=== PATIENT | male | born 2000 | race Caucasian/White ===

== ENCOUNTER 2024-07-11 18:43 | Emergency (ER) | payer OTHER, SELFPAY ==
[2024-07-11] VITALS (8 sets, daily range): BP systolic 127–164; BP diastolic 78–105; PULSE 79–87; RESP 13–21; TEMP 37.3; O2SAT 94–100; BMI 19.6
--- OUTSIDE RECORDS SUMMARY | 2024-07-11 18:45 | XMS_ITS | Data Portability ---
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 I reviewed the pathophysiology of the disorder, potential contributing and risk factors as well as treatment options to address their complaints. I discussed the pros and cons of advanced imaging. I did not recommend advanced imaging with CT. Today no imaging was obtained. Ronaldo presents with symptoms consistent with masticatory myofascial pain and bilateral TMJ arthralgia. We discussed that a main contributing factor is limited jaw function and a jaw thrusting component. From a treatment perspective I recommended a rehabilitative treatment approach. Treatment begins with home self management designed to rest the muscles of mastication and reduce inflammation in the temporomandibular joints. This includes heat and ice compresses, eating a soft food or pain-free diet, bilateral chewing identifying and decreasing daytime muscle tension and modification of their sleep position. Today I taught simple jaw exercises designed to improve the jaw mechanics and movement, improve range of mouth opening and improve TM joint fluid circulation to facilitate healing. This includes jaw rotation, simple stretch and relaxed breathing. This was both demonstrated and given in written format. Beyond self management I believe that they would benefit from a mandibular intraoral appliance. This will be considered after rehabilitation with physical therapy. In addition I've recommended rehabilitation with physical therapy. We discussed the option of doing PT in our clinic or referring outside. He will consider options and let us know which location would be more convenient for him. The goal of treatment is to improve pain, function and focus on long-term self-management strategies. I believe that by following these treatment recommendations there is a good prognosis for reduction of symptoms. History was obtained from the patient. The patient has 3 diagnoses they would like to address. This case is moderate complexity because of multiple diagnoses with chronic symptoms. Data reviewed included: outside records. Discussion with pain team members after visit was necessary. Risk of complications include progressive disease/symptoms. Today time spent may have included a review of past records, history taking, review of diagnoses, contributing factors, treatment plan, diagnostic testing, prognosis, expectations, risks and complications of treatment/no treatment, discussions with other providers and completing documentation was 60 minutes. Cost of care and insurance coverage was reviewed and discussed with the patient. Not available 11/11/2023 19:47:48 02/05/2024 02/05/2024 Patient presents to therapy with signs and symptoms consistent with the ICD 10 diagnoses noted below. 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 Condition is evolving with moderate irritability and personal factors/comorbidit ies affecting the plan of care (see history section for list of factors). These findings limit the pt from participation in the following functional activities: chewing anything other than pureed food, opening wide to yawn and speaking. Treatment plan to include reducing myalgia, increasing joint ROM, teaching self management strategies and strengthening to provide long-term symptom reduction. The patient was educated on the risks/benefits of physical therapy and the anatomy pertaining to their present condition. The physical therapy POC and goals were discussed with the patient and all present questions/concerns were addressed. Pt agrees to treatment plan. Rehabilitation potential is good. Treatment to include: therapeutic exercise, manual therapy, neuro muscular re education, therapeutic activities, self care, possible dry needling and modalities as needed. Frequency: will be 2>3/month for 6-8 weeks, tapering as able for a total of 6 visits over 3 months. [email or web address] Not available 02/05/2024 14:33:10 02/10/2024 02/10/2024 Coached Max to apply a little less stretching force on the R. Discussed questions about arthralgia vs muscle vs joint. Pt feels there is an issue with both the joint and the muscle but points out on his MRI that the R TMJ looked fine, although that is the side that clicks noticeably and bothers him more. We discussed the MRI is taken in a couple positions of the jaw and doesn't always perfectly capture what is going on - unfortunately. But, we will treat what we are finding and that is both some joint issues with the pain and clicking and the muscular pain/tension. [email or web address] Not available 02/10/2024 15:55:55 Plan of Treatment Reminders Order Date Submit Date Provider Last Modified By Organization Details Last Modified Time Details Appointments None recorded. Lab None recorded. Referral physical therapist referral 2023 024 [email or web address] Not available 19:53:45 Procedures None recorded. Surgeries None recorded. Imaging None recorded. Medication Orders None recorded. Patient Targets Encounter Date Encounter Id Patient Goals Patient Target Last Modified By Organization Details Last Modified Time [facility] goals (to be met in 12 weeks):*Patient will report improved score on JFWL by at least 10%, indicating clinically significant improvement in self-reported level of function to allow patient to safely achieve pre-onset level of function.*Patien t will demonstrate the ability to open jaw to 40mm IO without compensations, noticeable difficulty or pain greater than 2/10 to be allow for adequate jaw function for chewing food of all types and consistencies without compensation or difficulty. [email or web address] Not available 02/05/2024 14:33:13 Patient Instructions Encounter Date Encounter Id Patient Instructions Last Modified By Organization Details Last Modified Time 11/11/2023 [id number] Self Care for TMD Not avai lable 11/11/2023 19:53:45 Three Jaw Exercises Not available 11/11/2023 19:53:45 02/05/2024 [id number] Total treatment time minutes today = 55 Next Visit Plan: (mix of virtual and in-person) Review joint mob, start CR without neck extension. Tubing/gum rolling for AROM. INNJOY [employer] Code: [id number] Patient/Therapist Goals: stop pain and be able to chew again. Mushrooms - favorite. Progress Note Date: 05/04 [email or web address] Not available 02/05/2024 14:31:33 02/10/2024 [id number] Total treatment time minutes today = 35 Next Visit Plan: (mix of virtual and in-person future apts) Review joint mob and CR without neck extension. Tubing/gum rolling for AROM. [employer] Code: [id number] Patient/Therapist Goals: stop pain and be able to chew again. Mushrooms - favorite. Progress Note Date: 05/04 [email or web address] Not available 02/10/2024 15:59:10 Reason for Referral Physical Therapist Referral for Myofascial pain Referring Physician: [facility], Encounter Date: 11/11/2023 Problems Name Problem SNOMED Code Status Onset Date Resolution Date Notes Provider Name and Address Organization Details Recorded Time Bilateral temporoma ndibular joint pain 669706906536 04178 Active 2023 Bilateral TMJ arthralgi a DANIELA Aquino DDS,MS [address], [place], [address], [facility] 4 19:19:35 Myofascia l pain 823314497 Active 2023 masticato ry DANIELA Aquino DDS,MS [address], [place], [address], [facility] 4 19:24:48 Temporoma ndibular subluxati on 54910609 Active 2023 DANIELA Aquino DDS,MS [address], [place], [address], [facility] 4 19:34:16 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 Procedures Surgical History Date Name Laterality Status Provider Name and Address Organization Details Recorded Time 02/10/20 93654: Self Care/Home Management Training completed Micheline Cisneros DPT [address] [facility] [address], [place], [address], [facility] 02/10/2024 15:57:48 02/10/20 20585: Therapeutic Exercise completed Micheline Cisneros DPT [email or web address], [place], [address], [facility] 02/10/2024 15:57:45 02/10/20 41645: Neuromuscular Re-Education completed Micheline Cisneros DPT [address] [facility] [address], [place], [address], [facility] 02/10/2024 15:57:43 02/05/20 18439 - PT Eval High Complexity completed Micheline Cisneros DPT [address] [facility] [address], [place], [address], [facility] 02/04/2024 20:28:30 02/05/20 47589: Self Care/Home Management Training completed Micheline Cisneros DPT [address], [place], [address], [facility] 02/05/2024 14:25:52 02/05/20 07601: Therapeutic Exercise completed Micheline Cisneros DPT [email or web address], [place], [address], [facility] 02/05/2024 14:25:34 02/05/20 14233: Manual Therapy completed Micheline Cisneros DPT [address] [facility] [address], [place], [address], [facility] 02/05/2024 14:25:50 Other completed Rachel Contreras [facility] 11/11/2023 15:08:04 Taiban Teeth Extraction completed Rachel Contreras [facility] 11/11/2023 15:08:05 procedure on lung completed Rachel Contreras [facility] 11/11/2023 15:17:25 Imaging Results None recorded. Procedure Notes None recorded. Medical Equipment None Reported. Allergies No known drug allergies Medications Name Sig Start Date Stop Date Status Note LastModified by Organization Details LastModified Time methocarbamol 500 mg tablet active Not Available Not Availabl e Not Available Flonase active Not Available Not Avail able Not Available multivitamin with iron active Not Available Not Available No t Available Vitals Date Recorded Body height Body mass index (BMI) Body weight Heart rate Systolic blood pressure Diastolic blood pressure Provider Name and Address Organization Details Last Updated DateTime 4 185.42 cm 19.1 kg/m2 67923.8 9 g 61 /min 112 mm[Hg] 83 mm[Hg] Rachel Contreras [facility] 15:08:42 Social History Question Answer Notes LastModified by Organizat ion Details LastModified Time Tobacco Smoking Status Never Smoker [facility] 11/11/2023 15:08:00 What Is Your Level Of Alcohol Consumption? Occasional [email or web address] Information not available 11/11/2023 What Is Your Level Of Caffeine Consumption? Occasional Information not available 11/11/2023 Are You Currently Employed? No [email or web address] Information not available 11/11/2023 What Type Of Diet Are You Following? SPECIFIC Currently Eating A Pureed Diet Since Nov [email or web address] Information not available 11/11/2023 Do You Reside In Or Have You Traveled To An Area Where Ebola Virus Transmission Is Active? No [email or web address] Information not available 11/11/2023 What Is The Highest Grade Or Level Of School You Have Completed Or The Highest Degree You Have Received? 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 (0=no Pain, 10=pain As Bad As You Can Imagine) 2 [email or web address] Information not available 11/11/2023 What Number Best Describes How, During The Past Week, Pain Has Interfered With Your Enjoyment Of Life? (0=does Not Interfere, 10= Completely Interferes) 3 [email or web address] Information not available 11/11/2023 What Number Best Describes How, During The Past Week, Pain Has Interfered With Your General Activity? (0=does Not Interfere, 10=completely Interferes) 4 [email or web address] Information not available 11/11/2023 How Did Primary Problem Begin? Started Having Jaw Pain spring, Cause Unknown Information not available 11/11/2023 How Many Children Do You Have? 0 Information not available 11/11/2023 What Is Your Relationship Status? Single [email or web address] Information not available 11/11/2023 Do You Feel Stressed (tense, Restless, Nervous, Or Anxious, Or Unable To Sleep At Night)? [id number] [email or web address] Information not available 11/11/2023 Do You Use Any Illicit Or Recreational Drugs? No [email or web address] Information not available 11/11/2023 How Many Years Have You Smoked Tobacco? 0 [email or web address] Information not available 11/11/2023 Sex: Unknown Functional Status Question Answer Note LastModified by Organizat ion Details LastModified Time What is your exercise level? Occasional [email or web address] Information not available 11/11/2023 Mental Status None recorded. Family History Relationship Description Onset Age of this Age Resolved Age Notes LastModified by Organization Details LastModified Time Paternal Uncle Arthritis [email or web address] Not available 11/10 15:07:22 Paternal Grandmother Arthritis [email or web address] Not available 0 11/11/2023 15:07:22 Paternal Grandmother Diabetes mellitus [email or web address] Not available 11/10 15:07:22 Mother Depressive disorder [email or web address] Not available 11/10 15:07:22 Mother Arthritis Not availa ble 11/11/2023 15:07:22 Maternal Aunt Depressive disorder [email or web address] Not available 11/10 15:07:22 Maternal Aunt Rheumatoid arthritis [email or web address] Not available 11/10 15:07:22 Maternal Aunt Diabetes mellitus [email or web address] Not available 11/10 15:07:22 Unspecified Relation Depressive disorder [email or web address] Not available 11/10 15:07:22 Unspecified Relation Migraine [email or web address] Not available 11/10 15:07:22 Unspecified Relation Rheumatoid arthritis [email or web address] Not available 11/10 15:07:22 Unspecified Relation Diabetes mellitus [email or web address] Not available 11/10 15:07:22 Maternal Grandmother Depressive disorder [email or web address] Not available 11/10 15:07:22 Maternal Grandmother Diabetes mellitus [email or web address] Not available 11/10 15:07:22 Sister Depressive disorder Not available 11/10 15:07:22 Maternal Grandfather Hypertensive disorder [email or web address] Not available 11/10 15:07:22 Medical History Condition Response Coronary Artery Disease N Other Y Gout N Chronic fatigue syndrome N Hyperthyroidism N Premenstrual syndrome (PMS) N MRSA N Emphysema N Head Trauma/Injury N Irritable bowel syndrome N Depression Y COPD N Glaucoma N Lung Disease N Hypothyroidism N Pneumonia N Pacemaker N Orthopedic Problems N Obstructive Sleep Apnea N Anxiety Disorder Y Muscle, Joint, or Bone Problems Y Autoimmune disease N Vision or Eye Problems Y Arthritis N Serious Illness or Injuries N Acid Reflux (GERD) N Cancer N Stroke N Neck Injury N Eating disorder N Back Injury N High Cholesterol N Neurologic Disorder N History of chemotherapy N Liver Disease N Organ Transplant N Rheumatoid Arthritis N Fibromyalgia N Headaches N Kidney Disease N Allergies/Hayfever N Post traumatic stress disorder (PTSD) N Parkinson's Disease N Migraines N Thyroid Problems N Brain Tumors N Anemia N Multiple Sclerosis N Immune System Disorder N Meningitis N Pancreatic disease N Heart Attack (NM) N Stomach Ulcers N Diabetes N Back pain N Bleeding Disorder N Seizures/Epilepsy N Sjogren's syndrome N Mental Health Concerns N Tuberculosis N AIDS/HIV N Hyperlipidemia N History of radiation therapy N Dementia N Asthma N Physical or sexual abuse N Substance Abuse N Psoriasis N Peripheral Vascular Disease N Reflux/GERD N Vertigo N Sleep Disorder N GERD/Reflux N Hepatitis N Aneurysm N Neuropathy N Heart Disease N Pulmonary Embolism N Hypertension N Osteoporosis N Immunizations Vaccine Type Date Status Note Provider Nam e and Address Organization Details Recorded Time SARS-COV-2 (COVID-19) vaccine, UNSPECIFIED 4 completed SIMI Gan [facility] 11/11/2023 15:08:08 pneumococcal, unspecified formulation 4 completed SIMI Gan [facility] 11/11/2023 15:08:08 Influenza, split virus, trivalent, preservative 3 completed SIMI Gan [facility] 11/11/2023 15:08:08 Past Encounters Encounter ID Performer Location Encounter Start Date Encounter Closed Date Diagnosis/Indication Diagnosis SNOMED-CT Code Diagnosis ICD10 Code Diagnosis Note [id number] DANIELA CHILEL DDS,MS [facility] [address] [place] [address] 11/11/2023 14:49:22 11/11/2023 16:47:40 Myofascial pain 233817571 M79.11 claim taker y Bilateral temporomandibular joint pain 9662264079 7599156 M26.623 Bilateral TMJ arthralgia Temporoman dibular subluxation 76136300 S03.03XA [id number] Micheline Cisneros, CIROT [facility] [address] [place] [address] 02/05/2024 12:44:41 02/05/2024 14:12:30 Bilateral temporomandibular joint articular disc disorder 4086643085 1199661 M26.633 Bilateral temporomandibular joint pain 5074131111 3751002 M26.623 Myofascial pain 32698245 9 M79.11 Temporoman dibular subluxation 09133598 S03.03XA [id number] ELISEO San [address] [place] [address] 02/10/2024 14:28:03 02/10/2024 14:57:33 Bilateral temporomandibular joint articular disc disorder 7851979860 3950182 M26.633 Bilateral temporomandibular joint pain 9361204826 5940715 M26.623 Myofascial pain 65209101 9 M79.11 Temporoman dibular subluxation 61272267 S03.03XA Health Concerns Section Related Observation LastModified by Organization Detai ls LastModified Time None Recorded Concern Status LastModified by Organization Details LastModified Time None Recorded Advance Directives Directive None Recorded Payers Encounter Date Sequence Insurance Name Policy Number Policy Nicolas Covered Member ID Nicolas Member ID Guarantor Name 11/11/2023 1 QUARTZ [id number] Jeanne Carry [id number] Avila Vann 02/05/2024 1 QUARTZ [id number] Jeanne Carry [id number] Avila Vann 02/10/2024 1 QUARTZ [id number] Jeanne Carry [id number] Avila Vann Notes Date Note Type Note Provider Name and Address Organization Details Recorded Time 11/11/2023 text/html general HPI for jaw, face, TMD painReported bypatient.Onset:starte d 2 year(s) ago Location:bilateral Quality:aching; sore; pressure; throbbing Severity:pain level 5/10 Durationconstant Symptom triggers:chews hard/crunchy/chewy foods Aggravating Factors:chewing Prior Tests:MRI Prior Treatment:arthrocentes is Symptoms statusworse Patient presents today for evaluation of a possible temporomandibular disorder. These symptoms are {{acute chronic*}} and began with {{ no clear triggering events significant stress and tension eating a pizza#}}. Previous consultation include {{ none evaluation with his/her primary care provider evaluation with his/her dentist* evaluation with both his/her dentist and primary care provider}}. Symptoms are {{right sided only left sided only bilateral*}} and aggravated by {{ no clear triggers jaw use and function* clenching and grinding of their teeth stress and tension}}. The patient is {{aware* not aware}} of teeth clenching and grinding.Ronaldo presents with his mother, Jeanne, and he was referred by Dr. Hair for his main concern of jaw pain. Briefly, he reported that symptoms started on Spring 2021 while eating a pizza. He recalls having some jaw pain 2-3 days prior to that (R>L). While eating the pizza he had a brief episode of TMJ closed-lock. He had R TMJ arthrocentesis without benefit (Dr. Cobb). Pain subsided after a couple weeks by changing to soft diet. He has noticed R > L TMJ clicking since the locking episode. Jaw pain (R>L) returned less than a year later and gradually got worse. He has been on a restricted purred diet since. He notes ache pain, as intensity as 5/10 that can linger and build up with some throbbing sensation with increased jaw function. Symptoms are worse at the end of the day. Some soreness upon awakening. He is not aware of daytime clenching. No locking episodes since initial event. He has also seen Dr. Hair who recommended non-surgical management. He recently had genetic testing and that was negative for Marfan syndrome. He is a senior [facility], [place], [place]. DANIELA CHILEL DDS,MS [address] [facility] [address], [place], [address], [facility] 11/11/2023 19:53:47 02/05/2024 text/html Patient presents today for PT evaluation regarding: Chronic jaw pain and clickingSymptoms present for: since spring 2021 while eating pizza - had an initial episode of closed lockAggravated by: chewing, with B masseter region pain, builds as he chews. Mother is present during the session with pt permission.Improved by: has eaten pureed food for a yearCurrent symptoms are reported at 2-5/10. 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 Denies: numbness, tingling, vision changes, swallowing difficulty. Previous Treatment: surgical consult at [place] - not recommended Patient Goals include: stop pain to be able to chew again. Patient Reported Outcome JFLS-8 (out of 80): 02/04=25 Micheline Cisneros DPT [address] [facility] [address], [place], [address], [facility] 02/05/2024 14:33:56 02/10/2024 text/html Pt reports incre ased soreness in R TMJ area after the stretch. Wondering about amount of force with stretching. Typing notes during the session to keep track of things. Admits to having multiple theories, explanations and treatment plans by several providers. Had arthrocentesis before MRI, a second surgery was suggested but patient/family asked about an MRI before deciding on that which is why imaging was taken. As part of today's telehealth visit Verbal Consent to treat was obtained from the patient. The patient has been informed of what a Telehealth visit is: Telehealth is the practice of using telecommunication technology to evaluate, diagnose and care for patients at a distance. This telehealth visit is medically necessary due to patient choice, distance or to prevent the community spread of Covid-19. 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 The patient has been informed that there is a potential for data loss due to technical failure. Security Measures: Multiple layers of technical and administrative security controls have been implemented to safeguard patient information. Unique, password protected visit IDs will be provided for each session. Communications are established using 256-bit TLS encryption and all shared content is encrypted with AES-256 encryption. Micheline Cisneros DPT [address] [facility] [address], [place], [place], [id number], [facility] 02/10/2024 16:00:59
--- OUTSIDE RECORDS SUMMARY | 2024-07-11 18:46 | XMS_ITS | Encounter Summary ---
Author Organization [facility] [employer] [facility] Address [address] [place] [address] Care Team Providers Care Agricultural Production Engineer Name Role Phone Keagan Bryant Morena AMANDA Primary Care Provider [phone] Encounter Details Date Type Department Care Team (Late st Contact Info) Description 08/12/2023 Telephone [place] - Pediatric Specialty [address] [place] [address] Jocelyne Escalona, [place] [address] [place] [address] Social History Tobacco Use Types Packs/Day Years Used Date Smoking Tobacco: Never Smokeless Tobacco: Never Comments:smoke free Alcohol Use Standard Drinks/Week Comments Never 0 (1 standard drink = 0.6 oz pur e alcohol) Depression ([facility]) Answer Date Recorded PHQ2 Not on file 04/24/2023 PHQ4 Not on file 04/24/2023 PHQ-9 TOTAL SCORE 9 04/24/2023 Suicide Risk Alert Not on file 04/24/2023 Sex and Gender Information Value Date Recorded Sex Assigned at Not on file 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 Gender Identity Not on file Sexual Orientation Not on file Occupation Industry Job Start Date Job 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 Date 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 Submitted PA via [email or web address], REF# [id number] - pending * Telephone Encounter - Jocelyne Escalona, [place] - 08/12/2023 12:35 PM CDT GENETICS -- NGHIA BEEBE August 12, 2023 Who is billing: ([facility] or Lab) [facility] Lab Info (Address, Phone #) Prevention [facility] [facility] [address] Test Name: Marfan Syndrome and Related Aortopathies Test Code: 69559 Cpt Codes: 32351, 05428, 35428, 12178, 39495 Diagnosis Codes: Q67.7, H52.1, M35.7, F84.0 Referring Provider: Dr. Villarreal Purpose of testing: diagnostic, needed for medical management Has sample been obtained (if yes, date)? No Has medical mgt/clinical utility been addressed in genetics note? Yes If no, please state which provider you would like us to query to obtain medical mgt? What additional documents would you like sent with the PA request other than referring provider's note? none Assessment 1. Autism spectrum disorder (*) 2. Shoulder joint hypermobility 3. Pectus carinatum 4. Myopia with astigmatism, bilateral Jocelyne Escalona MS documented in this encounter Plan of Treatment Upcoming Encounters Date Type Department Care Team (Late st Contact Info) Description 07/27/2024 9:30 AM CDT Physical Therapy [facility] [address] [place] [address] Alexa Calloway, PT [address], [place] [id number] documented as of this encounter Visit Diagnoses Diagnosis Autism spectrum disorder (*)- Primary Autistic disorder, current or active state Shoulder joint hypermobility Pectus carinatum Myopia with astigmatism, bilateral documented in this encounter Care Teams Agricultural Production Engineer Relationship Specialty Start Date End Date Keagan Bryant MD [address] [place] [address] PCP - General FAMILY MEDICINE 12/23/19 documented as of this encounter
--- OUTSIDE RECORDS SUMMARY | 2024-07-11 18:46 | XMS_ITS | Encounter Summary ---
Author Organization [facility] [employer] [facility] Address [address] [place] [address] Care Team Providers Care Desk Monitor Name Role Phone Mode Bryantbranden Berg MD Primary Care Provider [phone] Reason for Visit * Reason Comments PT Daily Note Encounter Details Date Type Department Care Team (Latest Contact Info) Description 07/06/2024 2:30 PM CDT Physical Therapy [facility] [address] [place] [address] Alexa Calloway, PT [address] [place] [address] Myofascial pain (Primary Dx); Arthralgia of right temporomandibular joint; Myalgia of mastication muscle Social History Tobacco Use Types Packs/Day Years Used Date Smoking Tobacco: Never Passive Smoke Exposure: Never Smokeless Tobacco: Never Comments:smoke free Alcohol Use Standard Drinks/Week Comments Never 0 (1 standard drink = 0.6 oz pur e alcohol) [facility] Utilities Answer Date Recorded In the past 12 months has [employer] electric, gas, oil, or water company threatened to shut off services in your home? No 03/09/2024 Social Connection and Isolat ion Panel [NHANES] Answer Date Recorded In a typical week, how many times do you talk on the phone with family, friends, or neighbors? Twice a week 03/09/2024 How often do you get togethe r with friends or relatives? Twice a week 03/09/2024 How often do you attend chur ch or hinduism services? More than 4 times per year 03/09/2024 Do you belong to any clubs o r organizations such as bahai groups, unions, fraternal or athletic groups, or school groups? Yes 03/09/2024 How often do you attend meet ings of the clubs or organizations you belong to? More than 4 times per year 03/09/2024 Are you , , di vorced, , never , or living with a partner? Never 03/09/2024 AUDIT-C Answer Date Recorded Q1: How often do you have a drink containing alc ohol? Monthly or less 03/09/2024 Q2: How many drinks containi ng alcohol do you have on a typical day when you are drinking? 1 or 2 03/09/2024 Q3: How often do you have si x or more drinks on one occasion? Never 03/09/2024 Overall Financial Resource Strain (CARDIA) Answe r Date Recorded How hard is it for you to pa y for the very basics like food, housing, medical care, and heating? Not hard at all 03/09/2024 [facility] - Occupational Stress Questionnaire Answer Date Recorded Do you feel stress - tense, restless, nervous, or anxious, or unable to sleep at night because your mind is troubled all the time - these days? To some extent 03/09/2024 Exercise Vital Sign Answer Date Recorde d On average, how many days pe r week do you engage in moderate to strenuous exercise (like a brisk walk)? 7 days On average, how many minutes do you engage in exercise at this level? Patient declined 03/09/2024 Hunger Vital Sign Answer Date Recorded Within the past 12 months, y ou worried that your food would run out before you got the money to buy more. Never true 03/09/20 24 Within the past 12 months, t he food you bought just didn't last and you didn't have money to get more. Never true 03/09/2024 PRAPARE - Transportation Answer Date Re corded In the past 12 months, has l ack of transportation kept you from medical appointments or from getting medications? No 02/20 In the past 12 months, has l ack of transportation kept you from meetings, work, or from getting things needed for daily living? No 03/09/2024 Housing Stability Vital Sign Answer Vivek e Recorded In the last 12 months, was t here a time when you were not able to pay the mortgage or rent on time? No 03/09/2024 In the past 12 months, how m any times have you moved where you were living? 4 03/09/2024 At any time in the past [address] [facility], were you homeless or living in a detention (including now)? 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 Cobb Treatment Diagnosis: Assessment 1. Myofascial pain 2. Arthralgia of right temporomandibular joint 3. Myalgia of mastication muscle Total Visit Count: 2 Patient was seen from the dates of 06/21/24 to July 06, 2024. Assessment Patient presents to therapy with right TMJ pain limiting the following functional activities: chewing and yawning. Max continues to note gradually reducing pain and slow progression of foods that he is able to chew. HEP is updated to day for strength and posture. Plan Continue with PT follow up in 3 weeks. Next session: work on controlled opening without tongue at roof of mouth as able. F/u on comparison of lateral pterygoid tenderness with bilateral palpation. Subjective SUBJECTIVE MyChart VIDEO VISIT This appointment is being conducted by video visit. The patient is located in [facility]). Patient is: alone. Consent for video visit has been discussed with the patient. The patient was notified that this application is not secure and may present privacy risks of the information sent during the appointment.Patient acknowledges and consents to proceed with the video visit. Clinician completing this visit is located at Clinician Office ([place], [place]). Initial 07/06/24 Pain: Pain scale(0-10): Currently: 2-3/10; Pain at best, 0/10; Pain at worst, 4-5/10 Location(s): Both TMJ Quality: Achy. Doesn't just feel like a muscle pain though. Status Since Onset of Symptoms: Improving. Abnormal Symptoms Present: tinnitus. Does have hx of recent ear infection. Some ringing of the ear on the L. Ear pain or stuffiness: Related to recent infection. Neck pain: Bilateral UT and neck pain. Dizziness: NA Teeth pain: None Headaches: None Pain at rest: 1/10 Pain at worst: 3-4/10 in past 2 days Has less soreness when doing the lateral pterygoid release. Eating: bakes apples; went well but this is still a very soft food. Retried mushrooms and can do this if there's just some mushrooms with other foods. Previous Treatment: Initiated PT; two sessions. Injection. Soft diet. Symptoms relieved with: PT exercises, diet modification. History of heat use. Response to HEP: Has less soreness when doingthe lateral pterygoid release. Completes his HEP about 3 times per day. Activity Tolerance: Activities that tend to decrease/ease symptoms include: self muscle release of masseter can help but does not completely resolve the pain. Activities that increase symptoms include: chewing. (Recently tried mushrooms which were too chewy so far). Has done shredded or small pieces of chicken. Soft sandwhich bread but this can increase pain. Contributing factors (parafunctional habits): None that patient is aware of. Occasional gum chewingprior to onset of symptoms. Used to bite nails; does not currently. Activity Tolerance: Has startedeating sandwhiches (PB&J) which is going well; no pain increase or clicking. Tried baked applesfor first time. Continues to get sore with eating mushrooms (ok if a component of the food but unable to eat just mushrooms). Sleep: Rare disturbance of sleep due to jaw pain. Preferred sleeping posture: Primarily side sleeping; either side. Occasional supine. Current sleeping posture: Side. Activities of Daily Living: Chewing: Soft diet modification. Talking: No effect. Smiling: No effect. Laughing: No effect Yawning: If opens too wide this can be painful. Tries to keep tongue at roof of mouth. Wearing glasses: No effect. Wearing hearing aids: NA Washing the face: No effect. Oral hygiene: brushing twice daily; no pain. Dental visits: Avoids maximal opening; tries to avoid click/pop. Popping only seems to occur with maximal jaw opening. Regular Exercise: Occasional biking with nicer weather. (20 min to a couple of hours). Walks around campus. 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 Patient Goals: Be able to eat more things with less pain. Objective OBJECTIVE JFLS-8 (out of 80): 20 on 06/21/24 (with main limitations being chewing tough food, chewing chicken, and yawning). Initial 06/21/2024 Current Posture: Head position: Left side bend in resting position. Shoulder position: protracted Lip position: lightly touching. Teeth position: Overbite. Lower jaw laterally deviates to the left 3mm at rest Tongue position: Feels that it rests more by the back teeth. Breathing pattern: breathes through the nose. Poor posture in sitting; slouched, forward shoulders,FHP. Neurological Exam: Facial sensory deficits: None Active Range of Motion: Movement Initial 06/21/2024 (Right, Left) comments 07/06/24 TMJ opening (normal 40-60 mm) 52 mm Pop upon opening Patient reports 2 pops during maximal opening/closing TMJ lateral deviation (normal >7 mm) WNL; deviates L greater than R No pops noted TMJ protrusion (normal >7 mm) >7 mm Feels weird Quality of motion (smooth, rigid, jerky, guarded, thrusting) Shaky movement with lateral deviation TMJ translation Patient reports occasional deviation to the right. TMJ noise (Opening click and/or closing click; right or left; soft or loud) Opening pop. Movement Initial 06/21/2024 (Right, Left) comments Cervical Flexion 1 finger width from chest Cervical Extension >60 degrees Cervical Retraction WNL Cervical Protrusion WNL Cervical Rotation 68 degrees; 72 degrees Cervical Sidebending 40 degrees; 40 degrees Tends to rotate and extend during this motion Initial 06/21/2024 Current Palpation: Temporomandibular joint: TMJ palpation is normal with the exception of: Temporalis: Non-tender Internal Masseter: Tension and tenderness B. Medial Pterygoid: WNL Internal Medial Pterygoid: WNL Internal Lateral Pterygoid: Tenderness on R, WNL L. Capsule: Tenderness on R Initial 06/21/2024 Comments Passive Joint Mobility: Joint distraction: left > right Anterior/medial glide: right = left Left distraction increased R TMJ discomfort. Initial 06/21/2024 Current Special Tests: TMJ: Max Clench test with tongue depressors x 10 seconds: Pain is noted bilaterally with right performance on the contralateral side with left performance. (pain opposite side=joint, disc dysfunction; pain same side=myofascial dysfunction) TREATMENT Therapeutic Exercise x 15 minutes Patient status is re-assessed including response to updated HEP and functional limitations. Max has good consistency with his HEP. Performs 3x/day; will work towards 5x/day for joint distraction. Review technique for lateral pterygoid release; is reporting decreased soreness. Recommend comparing to his unaffected side to determine if it feels the same bilaterally at this point. Review masseter self release; still recommend this daily. Ok to perform within same session as lateral pterygoid release. Instructed in the following HEP updates: Postural correction in sitting with cervical retraction x 10; cues to avoid extension movement at end range; keep head level-should feel like a double chin. Recommend performing this about 5 times per day and coordinate hourly when using computer for greater than 1 hour. Isometric lateral deviation x 10 with 3-5 second hold. Cues that jaw should have no movement with this exercise. Neuromuscular re-education x 8 minutes Active review of controlled opening is performed. Patient is able to maintain neutral position whenhe performs with the tongue touching the roof of the mouth along with visual feedback. Trial controlled opening without visual feedback; continues to have some mild jaw deviation R. Recommend continuing with visual feedback at home. Review addition of resisted opening as well. Current Home Exercise Program includes: Controlled opening with addition of light resistance x 10, 5 times per day Self lateral pterygoid release Self masseter release x 30 seconds Self joint distraction mobilization 2x/day, 3 sets of 5 - Isometric Jaw Deviation - 1 x daily - 10 reps - 3-5 seconds - Seated Cervical Retraction - 5 x daily - 10 reps Patient is independent with listed exercises, can verbalize and demonstrate accuracy without cueingand has been issued a paper copy of their exercises unless otherwise noted. Start time: 1432 End time: 1455 Timed Code Treatment: 23 minutes Total treatment time: 23 minutes Charge codes: [id number], [id number] documented in this encounter Plan of Treatment Upcoming Encounters Date Type Department Care Team (Late st Contact Info) Description 07/27/2024 9:30 AM CDT Physical Therapy [facility] [address] [place] [id number] Alexa Calloway, PT [address] [place] [address] documented as of this encounter Visit Diagnoses Diagnosis Myofascial pain- Primary Mylagia and myositis, unspecified Arthralgia of right temporomandibular joint Arthralgia of temporomandibular joint Myalgia of mastication muscle documented in this encounter Care Teams Desk Monitor Relationship Specialty Start Date End Date Keagan Bryant MD [address] [place] [address] PCP - General FAMILY MEDICINE 12/23/19 documented as of this encounter
--- OUTSIDE RECORDS SUMMARY | 2024-07-11 18:46 | XMS_ITS | Clinical Summary ---
Author Organization [facility] [place] [address] Care Team Providers Care Client Services Analyst Name Role Phone ManavrgAlex salguero Primary Care Provider Unavailable Source Comments The [facility] EMR consists of medical records from all [facility] and [facility] ([facility]), the [facility] ([facility]), [facility], as well as other affiliates or partners, to include: [facility] in [place], [place], [facility], [facility], [facility], [facility], [facility], [facility]), [facility], and [facility]. The EMR may not contain all information available for this patient pursuant to the Care Everywhere program, as well as varying phases of implementation.[facility] and [facility] Social History Tobacco Use Types Packs/Day Years Used Date Smoking Tobacco: Never Assessed Financial Resource Strain Answer Date R ecorded Overall Financial Strain 99 019 Skipped Doctor's Visit 3 9 Skipped Medication due to cost 3 0 08/14/2018 Utility Shut-offs 3 08/14/2018 Sex and Gender Information Value Date Recorded Sex Assigned at Not on file Legal Sex Male 11:14 PM CDT Gender Identity Not on file Sexual Orientation Not on file Plan of Treatment Not on file Insurance [facility] Care Teams Client Services Analyst Relationship Specialty Start Date End Date Alex Reddy [address] [phone] PCP - General 08/26/19
--- OUTSIDE RECORDS SUMMARY | 2024-07-11 18:46 | XMS_ITS | Referral Summary ---
Author Organization [facility] and [facility] [place] [address] Care Team Providers Care Mri Assistant Name Role Phone ManavrgAlex salguero Primary Care Provider Unavailable Source Comments The [facility] EMR consists of medical records from all [facility] and [facility] ([facility]), the [facility] ([facility]), [facility], as well as other affiliates or partners, to include: [facility] in [place], [place], [facility], [facility], [facility], [facility], [facility], [place] [facility]), [place] [facility], and [facility]. The EMR may not contain all information available for this patient pursuant to the Care Everywhere program, as well as varying phases of implementation.[facility] and [facility] Social History Tobacco Use Types Packs/Day Years [...] Plan of Treatment Not on file Insurance [facility] Care Teams Mri Assistant Relationship Specialty Start Date End Date Alex Reddy [address] [phone] PCP - General 08/26/19
--- OUTSIDE RECORDS SUMMARY | 2024-07-11 18:46 | XMS_ITS | Encounter Summary ---
Author Organization [employer] s [facility] and [facility] Address [address] [place] [address] Care Team Providers Care Web Weaver Name Role Phone Keagan Bryant MD Primary Care Provider [phone] Encounter Details Date Type Department Care Team (Late st Contact Info) Description 06/01/2024 Telephone [place] - Oral Surgery [address] [place] [address] Zuri Juarez, Dental Merchandise Flow Associate [address] [place] [address] Social History Tobacco Use Types Packs/Day Years Used Date Smoking Tobacco: Never Passive Smoke Exposure: Never Smokeless Tobacco: Never Comments:smoke free Alcohol Use Standard Drinks/Week Comments Never 0 (1 standard drink = 0.6 oz pur e alcohol) [facility] Utilities Answer Date Recorded In the past 12 months has [employer] electric, gas, oil, or water company threatened [...] 03/09/2024 How often do you attend chur or moravian services? More than 4 times per year [...] and heating? Not hard at all 03/09/[address] [facility] of Occupat ional Health - Occupational Stress [...] any time in the past 12 m [facility], were you homeless or living in a senior care (including now)? 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 She stated that she is calling because I had helped Ronaldo in the past with his referral and approval to [facility]. They had some issues with billing and communication at that clinic. They never sent anything to [facility] to get treatment authorization. When they had asked about it at the [facility] he had they were told it was taken care of, but then [facility] denied treatment due to it being out of network. They spoke to insurance and was told we need to send a referral back to [facility] stating Ronaldo is to have his PT treatment at the [facility]. The reason is that there is no local option in [facility] for him to see a board certified CCTT specialist and they have one a their clinic. [facility] told[facility] that [facility] has PT options. Physical therapy treatment procedure Codes: 09495 - therapy px 1+ areas, 12900 - neuromuscular re-education 58429 - self half-way management 16720- joint mobilization MFR 95546- PT eval high complexity Jeanne stated the [facility] rep she spoke to was Paul [phone]. He is in the [facility]. She spoke to him in March and April. Jeanne stated the cell phone on file is the best way to contact her. I asked if she could have the clinic notes from the [facility] faxed to [facility], along with treatment that had been completed and the treatment recommendation. I would like it to include how many visits for PT this would include too. I will follow up with Dr. Cobb and [facility] to make sure I cover everything before we send anythingto [facility]. 06/02/[address] Cobb regarding PT here at [facility] not being able to treat Max. She stated that we havepatients that are treated all the time with TMJ services, so we can't say that he could not be seenhere. It is recommended that [facility] send their recommendations to PT at [facility] and if they can't do the services, then they could perhaps submit the PA. I LMR for Jeanne to give me a call. Jeanne called me back. I explained the above information. She does have Max filling out the form to allow the [facility] to send their notes. I did call PT when I was on the phone with Jeanne. They did state they have specialist that work with TMJ patients. They would need an order to schedule an appt. Dr Cobb is going to put the order in. Jeanne has the number to follow up with PT for an appointment. She is hoping to get him in on spring. 06/06/24 I did LMR for Jeanne to let her know the order is in for Max. Zuri Juarez documented in this encounter Plan of Treatment Upcoming Encounters Date Type Department Care Team (Late st Contact Info) Description 07/27/2024 9:30 AM CDT Physical Therapy [facility] [address] [place], [place] [id number] Alexa Calloway, PT [address] [place], [place] [id number] documented as of this encounter Visit Diagnoses Not on filedocumented in this encounter Care Teams Web Weaver Relationship Specialty Start Date End Date Keagan Bryant MD [address] [place], [place] [id number] PCP - General FAMILY MEDICINE 12/23/19 documented as of this encounter
--- OUTSIDE RECORDS SUMMARY | 2024-07-11 18:46 | XMS_ITS | Clinical Summary ---
Author Organization [facility] Address [address] [place] [address] Care Team Providers Care Technical Adjuster Name Role Phone Keagan Bryant MD Primary Care Provider [phone] Source Comments If you need additional information that is not available on Care Everywhere, please contact our Medical Records Department during business hours (Thursday - Thursday, 8 am - 5 pm) at . During nonbusiness hours, please contact our Trauma and Emergency Center at .[facility] and [facility] Allergies No known active allergies Medications * This document contains information received from the source organization and may not represent a complete record from that organization. * Medications may not be up to date as of this document. Always verify current medications with the patient. 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), 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 Asperger's syndrome 08/30/2020 S/P lobectomy of lung 12/23/2019 Overview (11/14/2020): 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 Social anxiety disorder (Provisional) 02/04/2019 Major depressive disorder, r ecurrent episode, in partial remission 01/10/2019 Overview (12/23/2019): risperdol (discontinued due to fatigue) Myopia with astigmatism, bilateral 12/19/2016 Autism spectrum disorder 10/08/2011 Pernio Resolved Problems Problem Noted Date Diagnosed Date Resolved Date Adjustment disorder with mix ed anxiety and depressed mood 08/30/2020 11/14/2020 Gastroesophageal reflux 10/29/201803/25 Myopia - Both Eyes 10/28/2011 6 Encounters Date Type Department Care Team Description 07/06/2024 2:30 PM CDT Physical Therapy [address] [address] Alexa Calloway, PT Myofascial pain (Primary Dx); Arthralgia of right temporomandibular joint; Myalgia of mastication muscle 06/21/2024 1:30 PM CDT Physical Therapy [address] [address] Alexa Calloway, PT Myofascial pain; Arthralgia of right temporomandibular joint; Myalgia of mastication muscle 06/02/2024 Orders Only [place] - Oral Surgery [address] [place] [address] Awa Cobb, NAHUM Myofascial pain (Primary Dx); Arthralgia of right temporomandibular joint; Myalgia of mastication muscle 06/01/2024 Telephone [place] - Oral Surgery [address] [place] [address] Zuri Juarez, Dental Funeral Workers 04/26/2024 3:15 PM BOTTLE TESTER [facility] Visit [facility] [facility] [address] [place] [address] Raven Lechuga, GASKET FORMER Bilateral impacted cerumen (Primary Dx); Acute otitis externa of both ears, unspecified type 04/26/2024 Travel from Last 3 Months Immunizations Immunization Administration Dates Next Due DTaP 09/30/2007,02/12/2004 DTaP-Hepatitis B-IPV 02/07/2003,2002,09/20 HIB PRP-T 02/12/2004, 3,2002,09/20 HPV Quadrivalent 04/05/2014,12/02/2013, 4 Hepatitis A, pediatric/adolescent 12/23/2019,12/2018 Hepatitis B, Adolescent or Pediatric 2002 Influenza 01/15/2007,01/16/2006 Influenza 6-35MO 01/14/2005, 4,03/09/2003,02/07 Influenza A H1N1 (All Formulations) 02/22/2009 Influenza Nasal Quadrivalent 01/19/2015,01/29/20 14,02/14/2013 Influenza Nasal Trivalent Live 2,02/08/2010,02/22/2009,01/26 Influenza Quadrivalent PF (d ose 0.5 mL) 01/06/2023,01/06/2022,01/07/2021,12/22,01/21/2019,01/29/2018,02/11/2017 ,02/13/2016 Influenza Trivalent 01/14/2005, 4,03/09/2003,02/07 MMR Live 09/30/2007,08/03/2003 Meningococcal MCV4P 10/29/2018,08/31/2013 Pfizer SARS-CoV-2 (12 yrs and older) 04/24/2023 Pfizer SARS-CoV-2 (Purple Cap) 03/20/2021,2020,07/02/2020 Pfizer SARS-CoV-2 Bivalent ( 12 yrs and older) 01/06/2022 Pneumococcal conjugate 7 valent 08/03/19 04,02/07/2003,2002,09/20 Polio Injectable 09/30/2007 RSV-IgIM 06/20/2003, 4,04/27/2003,03/30,03/02/2003,01/30/2003 Tdap 11/04/2023,08/31/2013 Varicella Live 09/30/2007,08/03/2003 Surgical History Surgery Date Site/Laterality Comments LOBECTOMY at 3 weeks old Medical History Medical History Date Comments Asperger's syndrome 10/08/2011 Healthcare maintenance Congenital lobar emphysema Pernio Gastroesophageal reflux 10/29/2018 Family History Medical History Relation Name Comments Cancer Father skin- basal abdulaziz l Hypertension Maternal Grandfather Diabetes Maternal Grandmother Depression Mother Glaucoma Paternal Grandfather Cancer Paternal Grandmother Diabetes Paternal Grandmother Depression Sister Juliet Relation Name Status Comments Father Alive Maternal Grandfather Alive Maternal Grandmother Alive Mother Alive Paternal Grandfather Alive Paternal Grandmother Alive Sister Juliet Alive Social History Tobacco Use Types Packs/Day Years Used Date Smoking Tobacco: Never Passive Smoke Exposure: Never Smokeless Tobacco: Never Tobacco Cessation:Counseling Given: No Comments:smoke free Alcohol Use Standard Drinks/Week Comments Never 0 (1 standard drink = 0.6 oz pur e alcohol) [facility] Utilities Answer Date Recorded In the past 12 months has [employer], gas, oil, or water [employer] threatened to shut off services in your home? No 03/09/2024 Social Connection and Isolat ion Panel [NHANES] Answer Date Recorded In a typical week, how many times do you talk on the phone with family, friends, or neighbors? Twice a week 03/09/2024 How often do you get togethe r with friends or relatives? Twice a week 03/09/2024 How often do you attend [facility] or taoist services? More than 4 times per year 03/09/2024 Do you belong to any clubs o r organizations such as islam groups, unions, fraternal or athletic groups, or [...] and heating? Not hard at all 03/09/2024 [facility] Occup[facility] ional Health - Occupational [...] any time in the past 12 m [facility], were you homeless or living in a care home (including now)? 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/[place] Not on file N ot on file Not on file Obstetrics History Last Filed Vital Signs Vital Sign Reading Time Taken Comments Blood Pressure 125/84 10/13/2023 1:21 PM CDT Pulse 70 10/13/2023 1:21 PM CDT Temperature 36.6 C (97.9 F) 10/13/2023 1:21 PM CDT Respiratory Rate 16 02/06/2023 3:33 PM BOTTLE TESTER Oxygen Saturation 100% 02/06/2023 3:48 PM BOTTLE TESTER Inhaled Oxygen Concentration - - Weight 65.8 kg (145 lb) 03/10/2024 6:58 AM BOTTLE TESTER Height 185.4 cm (6' 1) 03/10/2024 6:58 AM BOTTLE TESTER Body Mass Index 19.13 03/10/2024 6:58 AM BOTTLE TESTER Plan of Treatment Upcoming Encounters Date Type Department Care Team (Late st Contact Info) Description 07/27/2024 9:30 AM CDT Physical Therapy [facility] [address] [place] [address] Alexa Calloway, PT [address] [place] [address] Health Maintenance Due Date Last Done Comments Meningococcal B Vaccine (1 of 2 - Standard) 2018 DENTAL CLEANING 05/08/2021 11/05/2020, 04/23, 11/10/2019, Additional history exists DEPRESSION PHQ9 04/14/2024 10/13/2023, 10/22, 02/01/2020, Additional history exists WELLNESS VISIT 10/12/2024 10/13/2023, 03/25, 11/14/2020, Additional history exists LIPID SCREEN 11/03/2028 11/04/2023, 10/22, 11/01/2015 DTaP/Tdap/Td Vaccine (8 - Td or Tdap) 11/03/2033 11/04/2023, 08/31/2013, 09/30/2007, Additional history exists RSV Vaccines (1 - 1-dose 75+ series) 2077 Hepatitis B Vaccine Completed 02/07/2003, 2002, 2002, Additional history exists Pneumococcal Vaccine: Pediatrics (0 to 5 Years) and At-Risk Patients (6 to 49 Years) Aged Out 08/03/2003, 02/07/2003, 2002, Additional history exists No longer eligible based on patient's age to complete this topic POLIO (IPV) Vaccine Completed 09/30/2007, 02/07/2003, 2002, Additional history exists HPV Vaccine Completed 04/05/2014, 11/21, 09/30/2013 PERTUSSIS Completed 11/04/2023, 08/31/2013 Influenza Vaccine Completed 12/23/2023, , 01/06/2022, Additional history exists COVID-19 Vaccine Completed 12/31/2023, 04/2023, 01/06/2022, Additional history exists Procedures Procedure Name Priority Date/Time Associated Diagnosis Comments PT PLAN OF CARE CERT/RE-CERT Routine 06/29/2024 10:40 AM CDT Myofascial pain Arthralgia of right temporomandibular joint Myalgia of mastication muscle LAB LIPOPROTEIN ANALYSIS PANEL Routine 11/04/2023 9:34 AM CDT Encounter for screening for cardiovascular disorders NE PROPHYLAXIS, ADULT Routine 11/05/2020 3:45 PM CDT Visit for dental examination from Last 3 Months or Most Recently Relevant to Health Maintenance Results * LAB LIPOPROTEIN ANALYSIS PANEL (11/04/2023 9:34 AM CDT) CHOLESTEROL 146 0 - 200 mg/dL 11/04/2023 10:18 AM CDT [facility] Comment: Adult: >=18 YRS Desirable less than 200 mg/dL TRIGLYCERIDE 109 <150 mg/dL 11/04/2023 10:18 AM CDT [facility] Comment: Desirable: <150 mg/dL Borderline High: 150-199 mg/dL High: 200-499 mg/dL Very High: >=500 mg/dL NON HDL CHOLESTEROL 90 <130 mg/dL 11/04/2023 10:18 AM CDT [facility] Comment: Adult >=18 YRS: Desirable: <130 mg/dL LDL CHOLESTEROL 68 <130 mg/dL 11/04/2023 10:18 AM CDT [facility] Comment: Adult: >=18 YRS Desirable less than 100 mg/dL Calculated using the Friedewald formula. HDL CHOLESTEROL 56 40 - 60 mg/dL 11/04/2023 10:18 AM CDT [facility] HOURS FASTING >=9 Hours 11/04/2023 10:18 AM T [facility] Blood 11/04/2023 9:34 AM CDT 11/04/2023 10:00 AM CDT us Keagan Bryant MD CHEMISTRY ORDERABLES Final Re sult [facility] [address] [place] [address] from Last 3 Months or Most Recently Relevant to Health Maintenance Insurance Code Rebel Code Rebel Code Rebel [facility] CONTRACTED Care Teams Technical Adjuster Relationship Specialty Start Date End Date Keagan Bryant MD [address] [place] [address] PCP - General FAMILY MEDICINE 12/23/19
--- OUTSIDE RECORDS SUMMARY | 2024-07-11 18:46 | XMS_ITS | Encounter Summary ---
Author Organization [facility] [employer] [facility] and [facility] Address [address] [place] [address] Care Team Providers Care Battery Technician Name Role Phone Keagan Bryant MD Primary Care Provider [phone] Encounter Details Date Type Department Care Team (Late st Contact Info) Description 10/17/2020 Patient Outreach [place] [facility] Medicine [address] [place] [address] Keagan Bryant MD [address] [place] [address] Social History Tobacco Use Types Packs/Day Years Used Date Smoking Tobacco: Never Smokeless Tobacco: Never Comments:smoke free Alcohol Use Standard Drinks/Week Comments Not Asked 0 (1 standard drink = 0.6 oz pur e alcohol) Depression (GHS) Answer Date Recorded PHQ2 Not on file 08/30/2020 PHQ4 Not on file 08/30/2020 PHQ-9 TOTAL SCORE 9 08/30/2020 Suicide Risk Alert Not on file 08/30/2020 Sex and Gender Information Value Date Recorded Sex Assigned at Not on file 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 Gender Identity Not on file Sexual Orientation Not on file documented as of this encounter Plan of Treatment Upcoming Encounters Date Type Department Care Team (Late st Contact Info) Description 07/27/2024 9:30 AM CDT Physical Therapy [facility] [address] [place] [address] Alexa Calloway, PT [address] [place] [address] documented as of this encounter Visit Diagnoses Not on filedocumented in this encounter Care Teams Battery Technician Relationship Specialty Start Date End Date Keagan Bryant MD [address] [place] [address] PCP - General FAMILY MEDICINE 12/23/19 documented as of this encounter
--- OUTSIDE RECORDS SUMMARY | 2024-07-11 18:46 | XMS_ITS | Clinical Summary ---
Author Organization [facility] Address [address] [place] [address] Care Team Providers Care Pastrycook'S Assistant Name Role Phone Unavailable Primary Care Provider Unavailabl e Source Comments Patient records contain information from all sites at [facility]. For routine questions regarding patient records, call [phone] during business hours, M-F 8:00 AM - 5:00 PM Central Time. Record requests for emergency care only can be directed to [phone] at any time.[facility] Allergies No known active allergies Medications multivitamin tablet Take 1 tablet by mouth daily. Active fluticasone propionate (Flonase) 50 mcg/actuation nasal spray Administer 2 sprays into each nostril as needed for rhinitis or allergies. Active Social History Tobacco Use Types Packs/Day Years Used Date Smoking Tobacco: Never Smokeless Tobacco: Never Tobacco Cessation:Counseling Given: Not Answered [facility] Utilities Answer Date Recorded In the past 12 months has [facility] [employer], gas, oil, or water [employer] threatened to shut off services in your home? No 10/12/2023 Exercise Vital Sign Answer Date Recorde d On average, how many days pe r week do you engage in moderate to strenuous exercise (like a brisk walk)? 5 days 10/12/2023 On average, how many minutes do you engage in exercise at this level? 30 min 10/12/2023 Hunger Vital Sign Answer Date Recorded Within the past 12 months, y ou worried that your food would run out before you got the money to buy more. Never true 10/12/19 24 Within the past 12 months, t he food you bought just didn't last and you didn't have money to get more. Never true 10/12/2023 PRAPARE - Transportation Answer Date Re corded In the past 12 months, has l ack of transportation kept you from medical appointments or from getting medications? No 09/21 In the past 12 months, has l ack of transportation kept you from meetings, work, or from getting things needed for daily living? No 10/12/2023 Nutrition Answer Date Recorded On average, how many serving s of fruits and vegetables do you eat per day (serving size is equal to 1 cup or approximately the size of a tennis ball)? 0-2 10/12/2023 Dental Answer Date Recorded Dental: Regular Dentist Yes 10/12/19 Employment Answer Date Recorded Employment status N/A 10/12/2023 Housing Stability Answer Date Recorded What is your living situation today? 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 Gender Identity Nonbinary or Genderqueer 024 11:24 AM CDT Sexual Orientation Don't know 10/12/2023 11 :24 AM CDT Plan of Treatment Health Maintenance Due Date Last Done Comments HIV Screening 2002 Hearing Screening during Well Child Visit 2002 Hepatitis C Screening 2002 TB Screening during Well Child Visit 2002 1 week Well Child Check-Up 2002 Well Child Check-Up (WCC) 2002 1 month Well Child Check-Up 2002 2 month Well Child Check-Up 2002 4 month Well Child Check-Up 2002 9 month Well Child Check-Up 04/03/2003 15 month Well Child Check-Up 10/02/2003 18 month Well Child Check-Up 01/02/2004 2 year Well Child Check-Up 07/02/2004 30 month Well Child Check-Up 01/01/2005 3 year Well Child Check-Up 07/02/2005 Well Child Check-Up Completed in Past Year 07/02/2005 5 year Well Child Check-Up 07/03/2007 6 year Well Child Check-Up 07/02/2008 7 year Well Child Check-Up 07/02/2009 8 year Well Child Check-Up 07/02/2010 10 year Well Child Check-Up 07/02/2012 12 year Well Child Check-Up 07/02/2014 15 year Well Child Check-Up 07/03/2015 16 year Well Child Check-Up 07/02/2016 17 year Well Child Check-Up 07/02/2017 18 year Well Child Check-Up 07/28/2018 19 year Well Child Check-Up 07/03/2019 18 year Well Child Check-Up 07/02/2020 19 year Well Child Check-Up 07/02/2021 20 year Well Child Check-Up 07/02/2022 21 year Well Child Check-Up 07/03/2023 COVID-19 Vaccine ( season) 2023 04/24/2023, 01/06/2022, 03/20/2021, Additional history exists Influenza Vaccine (#1) 2023 , 01/06/2022, 01/07/2021, Additional history exists Depression Screening (Annual PHQ-2) 03/23/2024 DTaP,Tdap,and Td Vaccines (8 - Td or Tdap) 11/03/2033 11/04/2023, 08/31/2013, 09/30/2007, Additional history exists Hepatitis B Vaccines Completed 02/07/2003, 2002, 2002, Additional history exists Pneumococcal vaccine (0-49 years) Aged Out 08/03/2003, 02/07/2003, 2002, Additional history exists No longer eligible based on patient's age to complete this topic IPV Vaccines Completed 09/30/2007, 01/21, 2002, Additional history exists HPV Vaccines Completed 04/05/2014, 11/21, 09/30/2013 Meningococcal Vaccine Completed 10/29/2018, 014 Insurance [employer]
--- OUTSIDE RECORDS SUMMARY | 2024-07-11 18:46 | XMS_ITS | Encounter Summary ---
Author Organization [facility] Address [address] [place] [address] Care Team Providers Care Prepress Manager Name Role Phone Keagan Bryant MD Primary Care Provider [phone] Reason for Referral * Consult, Test & Treat (Routine) - Authorized Specialty Diagnoses / Procedures Referred By Tita hurst Referred To Contact PHYSICAL THERAPY / Physical Therapy Diagnoses Myofascial pain Arthralgia of right temporomandibular joint Myalgia of mastication muscle Procedures CONSULT TO PHYSICAL THERAPY Awa Cobb DMD [address] [place] [address] Phone: tel: fax: Liseth Riojas, PT [address] [place] [address] Phone: tel:[phone] fax:[phone] Referral ID Status Reason Start Date Expiration Date V isits Requested Visits Authorized [id number] Authorized Other 06/02/2024 03/22/2025 50 50 Encounter Details Date Type Department Care Team (Latest Contact Info) Description 06/02/2024 Orders Only Rupali Gómez - Oral Surgery [address] [place] [address] Awa Cobb, DMD [address] [place] [address] Myofascial pain (Primary Dx); Arthralgia of right temporomandibular joint; Myalgia of mastication muscle Social History Tobacco Use Types Packs/Day Years Used Date Smoking Tobacco: Never Passive Smoke Exposure: Never Smokeless Tobacco: Never Comments:smoke free Alcohol Use Standard Drinks/Week Comments Never 0 (1 standard drink = 0.6 oz pur e alcohol) [facility] Utilities Answer Date Recorded In the past 12 months has th e electric, gas, oil, or water company threatened [...] often do you attend chur ch or methodist services? More than 4 times per year 03/09/2024 Do you belong to any clubs o r organizations such as zoroastrianism groups, unions, fraternal or athletic groups, or [...] and heating? Not hard at all 03/09/2024 [facility] [place] of Occupat ional Health - Occupational Stress [...] any time in the past 12 m [facility], were you homeless or living in a penitentiary (including now)? 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 Not on file N ot on file Not on file documented as of this encounter Plan of Treatment Upcoming Encounters Date Type Department Care Team (Late st Contact Info) Description 07/27/2024 9:30 AM CDT Physical Therapy [facility] [address] [place] [address] Alexa Calloway, PT [address] [place] [address] documented as of this encounter Visit Diagnoses Diagnosis Myofascial pain- Primary Mylagia and myositis, unspecified Arthralgia of right temporomandibular joint Arthralgia of temporomandibular joint Myalgia of mastication muscle documented in this encounter Orders Consult Count Last Ordered Date First Orde red Date CONSULT TO PHYSICAL THERAPY 1 06/21/2024 documented in this encounter Care Teams Prepress Manager Relationship Specialty Start Date End Date Keagan Bryant MD [address] [place] [address] PCP - General FAMILY MEDICINE 12/23/19 documented as of this encounter
--- OUTSIDE RECORDS SUMMARY | 2024-07-11 18:46 | XMS_ITS | Encounter Summary ---
Author Organization [facility] Address [address] [place] [address] Care Team Providers Care Lock And Dam Repairer Name Role Phone Keagan Bryant MD Primary Care Provider [phone] Reason for Visit * Reason Comments PT Initial Evaluation * Consult, Test & Treat (Routine) - Authorized Specialty Diagnoses / Procedures Referred By Tita hurst Referred To Contact PHYSICAL THERAPY / Physical Therapy Diagnoses Myofascial pain Arthralgia of right temporomandibular joint Myalgia of mastication muscle Procedures CONSULT TO PHYSICAL THERAPY Awa Cobb, DMD [address] [place] [address] Phone: tel: fax: Liseth Riojas, PT [address] [place] [address] Phone: tel:[phone] fax:[phone] Referral ID Status Reason Start Date Expiration Date V isits Requested Visits Authorized [id number] Authorized Other 06/02/2024 03/22/2025 50 50 Encounter Details Date Type Department Care Team (Latest Contact Info) Description 06/21/2024 1:30 PM CDT Physical Therapy [facility] [address] [place] [address] Sinanesterhollie Alexa Ester, PT [address] [place] [address] Myofascial pain; Arthralgia of right temporomandibular joint; Myalgia of mastication muscle Social History Tobacco Use Types Packs/Day Years Used Date Smoking Tobacco: Never Passive Smoke Exposure: Never Smokeless Tobacco: Never Comments:smoke free Alcohol Use Standard Drinks/Week Comments Never 0 (1 standard drink = 0.6 oz pur e alcohol) [facility] Utilities Answer Date Recorded In the past 12 months has e electric, gas, oil, or water company [...] often do you attend chur ch or episcopal services? More than 4 times per year 03/09/2024 Do you belong to any clubs o r organizations such as advent groups, unions, fraternal or athletic groups, or [...] and heating? Not hard at all 03/09/2024 [facility] [place] of Occupat ional Health - Occupational Stress [...] any time in the past 12 m [facility], were you homeless or living in a penitentiary (including now)? 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 Gender: Male REFERRING PROVIDER: Keagan Bryant MD DIAGNOSIS: Medical Diagnosis: Assessment 1. Myofascial pain 2. Arthralgia of right temporomandibular joint 3. Myalgia of mastication muscle Onset Date of Current Episode: 06/21/24. ASSESSMENT Patient presents to therapy with right TMJ limiting the following functional activities: chewing and yawning. PT Diagnosis: Myofascial pain dysfunction, arthralgia of bilateral temporomandibular joints. I feel the patient would benefit from physical therapy to address the above- mentioned impairments. Prior Level of Function: Used to be able to chew all foods without need for diet modification. Rehabilitation Potential: This patient has good rehab potential to meet the following goals with consistent attendance and active involvement in treatment. Barriers to treatment: Location and insurance network coverage; patient is currently home from college and will need to virtual visits for follow up. Contraindications/precautions: None. Age-Related Considerations: None Medical Diagnosis: Assessment 1. Myofascial pain 2. Arthralgia of right temporomandibular joint 3. Myalgia of mastication muscle Low complexity evaluation History/personal factors/co-morbidities: None Examination: (1-2 findings including at least 1 objective measure) Body Structures: Musculoskeletal: myofascial pain, joint pain. Activity Limitations: Limited ability to chew, limited mobility for mouth opening (yawning). Presentation: Stable, slowly improving. PT GOALS Treatment Goals were mutually agreed upon with patient. 1. Patient will be independent with a home exercise program and self care program to enable independent control of symptoms. To achieve within: 90 days. Goal status: New 06/21/2024. 2. Patient will report at least 2 points of change on the patient specific functional scale on the PROMIS questionnaire in order to demonstrate meaningful change with ability to chew food. To achieve within: 90 days Goal status: New 3. Patient will report improved score on JFWL by at least 10%, indicating clinically significant improvement in self-reported level of function to allow patient to safely achieve pre-onset level of function. To achieve within: 90 days Goal status: New PLAN OF CARE This Plan of Care will be for service dates from June 21, 2024 through 09/18/24. Type of Treatment: Modalities: PRN---ultrasound, phonophoresis, iontophoresis or electrical stimulation Manual therapy: Soft Tissue Mobilization, Joint Mobilization, Scar Mobility Therapeutic Exercise Posture/Body Mechanics Training Patient Education/Instruction Neuromuscular Re-education Functional dry needling Next Visit: F/U on response to HEP and addition of the lateral pterygoid self release. Add postural exercise (cervical retraction) and consider tube rolling. Frequency: up to twice monthly for up to 6 additional visits in the next 90 days. SUBJECTIVE 01/05/23: Patient was seen in Dental-Oral & Maxillofacial Surgery and diagnosed with disc displacement without reduction, right TMJ. Tthe following procedure was recommended: right TMJ arthrocentesis with a steroid injection. 02/06/23: R TMJ arthrocentesis with steroid injection was completed. Patient was measured to have post-op LYNDSAY 50 mm. 05/11/23: Call only visit with Dr. Cobb and [facility]. 10/12/23: Was evaluated by Dr. Browne including the following assessment : After clinical and radiographic examination, it does not appear that he is experiencing TMJ disc displacement with or without reduction. The MRI indicates a normal position of the bilateral TMJ discs, although the right TMJ disc is harder to visualize compared to the left. Additionally, there is no crepitus, clicking, orpopping on clinical exam to suggest disc displacement with reduction. While Ronaldo does experience popping noises when opening wide, it is likely that his TMJs are subluxing when he does this. The location where he feels the epicenter of his pain is as well as where it radiates suggests myalgia of thebilateral lateral pterygoids. His reduced protrusion and the pain he experiences on protrusion suggests his pain is stemming from the lateral pterygoids. Based on review of the imaging and clinical exam today, we do not recommend any surgical intervention at this time. He has already undergone arthr ocentesis without any benefit. Additional arthroscopy or arthrocentesis would not seem to be beneficial in light of this. We recommend non-surgical management at this time. We discussed Ronaldo visiting with the [facility] for further evaluation and non-surgical treatment for his current bilateral TMJ arthralgia and bilateral lateral pterygoid myalgia. 11/11/23: Dr. Rafael Keith recommended PT. 02/05/24: PT visit with Micheline Cisneros DPT. HEP was initiated. Virutal visit follow up. Patient Reported Outcome JFLS-8 (out of 80): 25 on 02/05/24 Stopped chewing food after the arthrocentesis. Gradually started chewing more soft foods after initiating PT. Has lower levels of pain than he didbefore/after the arthrocentesis. Exercises: 2x/day 3 sets of 5 with self distraction Controlled opening with tongue at the roof of the mouth x 10, 5 times per day. (Optional adding resistance below the chin). Does some self masseter release (about 30 seconds or so) Initial Mechanism of injury: Chart review shows initial onset of June 2021 with a complaint of right joint noises and an episode of acute closed lock on the right side that self-resolved. Did have some pain after that time thatdid go away. Did have clicking/popping after the pain resolved. History of injury to the head or face: None TMJ noise: pop upon opening, none with closing. Right sided. TMJ locking: History of lock closed. 1 time; only lasted a few seconds. Accidents/Falls History: Any Motor Vehicle Accidents: No. History of Falls: No. At Risk for Falls: No. Are you or have you been threatened or abused physically, emotionally, or sexually by a partner, spouse or family member? Not asked. Pain: Pain scale(0-10): Currently: 2-3/10; Pain at [...] Dizziness: NA Teeth pain: None Headaches: None Previous Treatment: Initiated PT; two sessions. Injection. Soft diet. Symptoms relieved with: PT exercises, diet modification. History of heat use. Activity Tolerance: Activities that tend to decrease/ease [...] Used to bite nails; does not currently. Sleep: Rare disturbance of sleep due to [...] Avoids maximal opening; tries to avoid click/pop. Regular Exercise: Occasional biking with nicer weather. (20 min to a couple of hours). Walks around campus. 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 Patient Goals: Be able to eat more things with less pain. Medical History: General Health: Good. Past Medical History: Diagnosis Date Asperger's syndrome 10/08/2011 Congenital lobar emphysema Gastroesophageal reflux 10/29/2018 Healthcare maintenance [facility] Relevant/Recent Surgeries: Past Surgical History: Procedure Laterality Date LOBECTOMY at 3 weeks old Diagnostic Tests Completed: Yes, MRI 05/04/23 IMPRESSION: Right temporomandibular joint articular disc appears asymmetrically smaller than the left and is not well seen during closed mouth positioning, although appears normal during open-mouth positioning. OBJECTIVE: JFLS-8 (out of 80): 20 on 06/21/24 [...] teeth. Breathing pattern: breathes through the nose. Neurological Exam: Facial sensory deficits: None Active Range of Motion: Movement Initial 06/21/2024 (Right, Left) comments TMJ opening (normal 40-60 mm) 52 mm Pop upon opening TMJ lateral deviation (normal >7 mm) WNL; [...] Opening pop. Movement Initial 06/21/2024 (Right, Left) Current (Right, Left) Cervical Flexion 1 finger width from chest Cervical Extension >60 degrees Cervical Retraction WNL Cervical Protrusion WNL Cervical Rotation 68 degrees; 72 degrees Cervical Sidebending 40 degrees; 40 degrees Tends to rotate and extend during this motion Passive Range of Motion: Movement Initial 06/21/2024 Current TMJ opening (normal 42-62 mm) (scissors stretch- muscular vs internal derangement) Did not assess Initial 06/21/2024 Current Palpation: Temporomandibular joint: TMJ [...] disc dysfunction; pain same side=myofascial dysfunction) TREATMENT TODAY PT initial evaluation x 55 minutes: Educated patient about diagnosis, prognosis, and treatment. Patient verbalized understanding. Therapeutic Exercise x 20 minutes: Instruction and active review in a home exercise program: Self masseter release Self lateral pterygoid release Self joint distraction mobilization. Manual Therapy x 10 minutes: PT performs lateral pterygoid release. Patient is instructed in self release and this is repeated by PT in sitting so that patient can compare pressure/sensation with self release. Neuromuscular Re-education x 5 minutes: Active review of controlled opening along with self palpation. Recommend use of mirror for at least 1-2 of the sets in order to monitor movement pattern visually. Patient agreed to treatment and had no adverse effects. HOME EXERCISE PROGRAM: Controlled opening with addition of light resistance Self lateral pterygoid release Self masseter release Self joint distraction mobilization Patient is independent with listed exercises, can verbalize and demonstrate accuracy without cueingand has been issued a paper copy of their exercises unless otherwise noted. Evaluation Time (46078o2): 55 minutes. Therapeutic Exercise ([id number]): 20 minutes. Neuromuscular Re-education (07237o4): 5 minutes. Manual Therapy (70763w1): 10 minutes. Non billed time: 4 minutes. Total Treatment Time: 94 minutes. Charges: 87623; 38483g6, 78717p3. Alexa Calloway PT, [place] License #[id number] documented in this encounter Plan of Treatment Upcoming Encounters Date Type Department Care Team (Late st Contact Info) Description 07/27/2024 9:30 AM CDT Physical Therapy [facility] [address] [place] [address] Alexa Calloway, PT [address] [place] [address] documented as of this encounter Procedures Procedure Name Priority Date/Time Associated Diagnosis Comments PT PLAN OF CARE CERT/RE-CERT Routine 06/29/2024 10:40 AM CDT Myofascial pain Arthralgia of right temporomandibular joint Myalgia of mastication muscle documented in this encounter Visit Diagnoses Diagnosis Myofascial pain Mylagia and myositis, unspecified Arthralgia of right temporomandibular joint Arthralgia of temporomandibular joint Myalgia of mastication muscle documented in this encounter Orders Consult Count Last Ordered Date First Orde red Date CONSULT TO PHYSICAL THERAPY 1 06/21/2024 PT Count Last Ordered Date First Orde red Date PT PLAN OF CARE CERT/RE-CERT 1 06/29/2024 documented in this encounter Care Teams Lock And Dam Repairer Relationship Specialty Start Date End Date Keagan Bryant MD [address] [place] [address] PCP - General FAMILY MEDICINE 12/23/19 documented as of this encounter
--- NOTE | 2024-07-11 19:53 | ED_ITS ---
HPI - Chest Pain General Time Seen by Provider: 19:53 Date Seen: 07/11/24 Chief Complaint: Chest Pain Stated Complaint: chest pain Time Seen by Provider: 07/11/24 19:45 Source: patient, RN notes reviewed and old records reviewed Mode of arrival: ambulatory Limitations: no limitations History of Present Illness HPI narrative: 23-year-old male who comes in with left-sided chest pain radiating to the left side of the neck that started yesterday. Patient with a history of infant emphysema and had a lobectomy at 1-month-old, also history of hypermobility disorder, negative testing from [employer] in the past but did have a to neck abnormality of undetermined significance at that time. Patient reports that he has had this pain off and on in the past, usually last 2-3 days and then gets better. Says he has had evaluations for this pain before but not while he was actually having the pain. Took Tylenol with some improvement of his symptoms. He denies shortness of breath but says the pain is worse with breathing. Related Data Allergies Allergy/AdvReac Type Severity Reaction Status Date / Time No Known Allergies Allergy Verified 07/11/24 21:07 [facility] Social History service: No Exam Narrative Exam Narrative: General: Well-developed and well-nourished, no acute distress Head: Atraumatic and normocephalic Eyes: Pupils are equal reactive, extraocular motions intact, conjunctiva clear ENT: External nose and ears are normal, posterior pharynx without erythema or exudate Neck: No midline cervical tenderness, full spontaneous range of motion the neck, trachea midline, no adenopathy Heart: Regular rate and rhythm no murmurs or thrills Lungs: Clear to auscultation bilaterally without wheezes or crackles Abdomen: Soft, nontender, nondistended with active bowel sounds Musculoskeletal: No tenderness, deformity, or edema Neurologic: Awake, alert, and oriented x3, no gross focal neurologic deficits, cranial nerves intact as tested Psych: Mood and affect are appropriate Skin: No rashes Const Vital Signs, click to edit/add: Vital Signs - 24 hr 07/11/24 18:54 07/11/24 20:31 07/11/24 20:32 Temperature 99.2 F Pulse Rate 80 79 Pulse Rate [Pulse Oximeter] 84 Respiratory Rate 16 18 17 Blood Pressure 127/78 Blood Pressure [Right Upper Arm] 164/105 H Pulse Oximetry 98 94 100 Oxygen Delivery Method Room Air 07/11/24 21:00 07/11/24 21:01 Temperature Pulse Rate 86 87 Pulse Rate [Pulse Oximeter] Respiratory Rate 16 15 Blood Pressure 144/90 H Blood Pressure [Right Upper Arm] Pulse Oximetry 100 99 Oxygen Delivery Method Course Course ED Course: Patient seen and examined, presents today with left-sided chest pain radiating to the left side of the neck, constant since yesterday but gets worse with movement. No shortness of breath. 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 However, he notes that he has had evaluation for this pain in the past which is been negative. Nonetheless, given body habitus, description of pain, and history of connective tissue mentation, cannot exclude acute aortic pathology including dissection or aneurysm, additionally patient is little hypertensive, CTA is ordered. Consider also pericarditis or myocarditis, troponin and CRP are ordered although EKG does not demonstrate any findings for acute pericarditis. EKG independently interpreted by me performed at 7:50 p.m. demonstrates sinus rh ythm rate 80, QRS 92, QTC 410, KS 168, no acute ischemic changes, no prior for comparison. Reevaluation(s) Time of Reevaluation #1: 21:09 Reevaluation #1: Labs in the pill interpreted by me with negative troponin, normal CBC, normal basic panel, slightly elevated CRP, normal magnesium, negative BNP. CT scan of the chest independently interpreted by me does not demonstrate acute pneumothorax, hemothorax, aortic dissection, aortic aneurysm, pulmonary embolism. Patient is stable for discharge with outpatient follow-up. Time of Reevaluation #2: 21:53 Reevaluation #2: Reviewed radiology interpretation CT scan which agrees with my initial interpretation. Patient is stable for discharge. Vital Signs Vital signs: Initial Vital Signs Temperature 99.2 F 07/11/24 18:54 Temperature Source Temporal Artery Scan 07/11/24 18:54 Pulse Rate 84 07/11/24 18:54 Respiratory Rate 16 07/11/24 18:54 Blood Pressure 164/105 H 07/11/24 18:54 Blood Pressure Mean 124 H 07/11/24 18:54 Pulse Oximetry 98 07/11/24 18:54 Oxygen Delivery Method Room Air 07/11/24 18:54 Vital Signs Temperature 99.2 F 07/11/24 18:54 Pulse Rate 84 07/11/24 18:54 Respiratory Rate 16 07/11/24 18:54 Blood Pressure 164/105 H 07/11/24 18:54 Pulse Oximetry 98 07/11/24 18:54 Oxygen Delivery Method Room Air 07/11/24 18:54 Temperature 99.2 F 07/11/24 18:54 Pulse Rate 87 07/11/24 21:01 Respiratory Rate 15 07/11/24 21:01 Blood Pressure 144/90 H 07/11/24 21:01 Pulse Oximetry 99 07/11/24 21:01 Oxygen Delivery Method Room Air 07/11/24 18:54 MDM - Chest Pain Lab Data Labs: Lab Results 07/11/24 Range/Units 20:06 WBC 8.62 (4.50-11.00) K/uL RBC 4.42 (4.30-5.90) m/uL Hgb 13.5 (13.5-17.5) gm/dL Hct 39.6 (37.0-53.0) % MCV 90 (80-100) fL MCH 31 (26-34) pg MCHC 34 (32-36) gm/dL RDW Coeff of Aidan 11.8 (11.5-15.5) % Plt Count 267 (140-440) K/uL Neut % (Auto) 73.0 H (42.0-72.0) % Lymph % (Auto) 16.6 L (20-44) % Carbon % (Auto) 8.8 (0.0-11.0) % Eos % (Auto) 1.2 (0.0-7.0) % Baso % (Auto) 0.3 (0.0-3.0) % Neut # (Auto) 6.30 (1.7-7.0) K/uL Lymph # (Auto) 1.40 (0.90-2.90) K/uL Carbon # (Auto) 0.80 (0.00-0.90) K/UL Eos # (Auto) 0.10 (0.00-0.50) K/uL Baso # (Auto) 0.03 (0.00-0.30) K/uL Abs Immat Gran (auto) 0.01 (0.00-0.30) K/uL Imm/Tot Granulo (auto) 0.1 % Sodium 140 (135-149) mmol/L Potassium 3.7 (3.6-5.1) mmol/L Chloride 101 (96-114) mmol/L Carbon Dioxide 29 (20-32) mmol/L Anion Gap 10 (7-15) mEq/L BUN 11 (5-24) mg/dL Creatinine 0.8 (0.5-1.5) mg/dL Estimated Creat Clear 138.88 Estimated GFR 129 ml/min Glucose 99 (60-115) mg/dL Calcium 9.2 (8.4-10.6) mg/dL Magnesium 2.2 (1.5-2.6) mg/dL C-Reactive Protein 4.0 H (0.5-1.0) mg/dL NT-Pro-B Natriuret Pep < 20 pg/mL Discharge Plan Discharge Clinical Impression: Atypical chest pain Patient Disposition: Home, Self-Care Condition: Stable Instructions: Chest Pain (ED) Additional Instructions: Take Tylenol or ibuprofen as needed for your chest pain Follow-up with your primary care provider in 1 week if needed Activity Level: Activity as Tolerated Discharge Diet: Regular Follow Up/Referrals: Provider,Not a Local [Primary Care Provider] - Stand Alone Forms: [facility]2 Info Instructions
--- NOTE | 2024-07-11 19:58 | CRLHL7_ITS ---
For Patients: As a result of the 21st Century Cures Act, medical imaging exams and procedure reports are released immediately into your electronic medical record. You may view this report before your referring provider. If you have questions, please contact your health care provider. INDICATION: Chest pain radiating to neck, history of connective tissue disease. TECHNIQUE: CT chest without contrast and CT chest, abdomen and pelvis acquired with 100 cc Omnipaque 350 IV contrast, dissection protocol including noncontrast and arterial phases. Axial MIPS reconstructions generated. COMPARISON: None. FINDINGS: CHEST: Cardiovascular structures: The unenhanced images demonstrate no evidence of aortic intramural thrombus. Thoracic aorta is normal in caliber without evidence of dissection. Heart size is normal. No large central pulmonary embolism. Mediastinum and joce: No mass or adenopathy. Lungs and pleura: Lungs are clear. No pleural effusions. Chest wall and axilla: No mass or adenopathy. Multiple subcentimeter hypodense thyroid nodules. Bones: Unremarkable for age. ABDOMEN AND PELVIS: Liver: Unremarkable. Gallbladder and bile ducts: Unremarkable. Pancreas: Unremarkable. Spleen: Unremarkable. Adrenal glands: Unremarkable. Kidneys: Unremarkable. GI tract: Unremarkable. Vascular structures: Abdominal aorta is normal in caliber without evidence of dissection. Mesenteric arteries are patent. Lymph nodes: Unremarkable. Miscellaneous: Unremarkable. No free air or significant free fluid. Pelvic Organs: Bladder is decompressed. Prostate is unremarkable. Bones: Unremarkable for age. IMPRESSION: 1. No acute findings to explain the patient`s symptoms. Specifically, no evidence of dissection or other acute aortic pathology. 2. Multiple small hypodense thyroid nodules could be evaluated in greater detail with outpatient ultrasound, if clinically indicated. Please note that all CT scans at this facility use dose modulation, iterative reconstruction, and/or weight-based dosing when appropriate to reduce radiation dose to as low as reasonably achievable. Dictated by Blair Diaz MD @ 07/11/2024 9:51:46 PM (Electronically Signed)
--- OUTSIDE RECORDS SUMMARY | 2024-07-11 20:16 | XMS_ITS | Encounter Summary ---
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 Gender Identity Not on file Sexual Orientation Not on file Occupation Industry Job Start Date Job 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 Submitted PA via [employer], REF# [id number] - pending * Telephone Encounter - Jocelyne [place], [place] - 08/12/2023 12:35 PM CDT GENETICS -- NGHIA BEEBE August 12, 2023 Who is billing: ([facility] or Lab) [facility] Lab Info (Address, Phone #) Prevention Address: [address] [address] Test Name: Marfan Syndrome and Related Aortopathies Test Code: 28690 Cpt Codes: 08794, 06640, 50417, 03450, 77495 Diagnosis Codes: Q67.7, H52.1, M35.7, F84.0 Referring [...] Description 07/27/2024 9:30 AM CDT Physical Therapy [facility] [address] [place] [address] Alexa Calloway, PT [address] [place], [place] [id number] documented as of this encounter Visit Diagnoses Diagnosis Autism spectrum disorder (*)- Primary Autistic disorder, current or active state Shoulder joint hypermobility Pectus carinatum Myopia with astigmatism, bilateral documented in this encounter Care Teams Health And Wellness Advisor Relationship Specialty Start Date End Date Keagan Bryant MD [address] [place] [address] PCP - General FAMILY MEDICINE 12/23/19 documented as of this encounter
--- OUTSIDE RECORDS SUMMARY | 2024-07-11 20:16 | XMS_ITS | Referral Summary ---
Author Organization [facility] and [facility] [place] [address] Care Team Providers Care Professor Of Mathematics Name Role Phone ManavrgAlex salguero Primary Care Provider Unavailable Source Comments The [facility] EMR consists of medical records from all [facility] and [facility] ([facility]), the [facility] ([facility]), [facility], as well as other affiliates or partners, to include: [facility] in [place], [place], [facility], [facility], [facility], [facility], [facility], [facility]), [place] [facility], and [facility]. The EMR may not contain all information available for this patient pursuant to the Care Everywhere program, as well as varying phases of implementation.[facility] and [facility] Social History Tobacco Use Types Packs/Day [...] Plan of Treatment Not on file Insurance [facility] STATE [facility] Care Teams Professor Of Mathematics Relationship Specialty Start Date End Date Aelx Reddy [address] [id number] PCP - General 08/26/19
--- OUTSIDE RECORDS SUMMARY | 2024-07-11 20:16 | XMS_ITS | Encounter Summary ---
Author Organization [facility] Address [address] [place] [address] Care Team Providers Care Battery Vent Plug Inserter Name Role Phone Keagan Bryant MD Primary Care Provider [phone] Reason for Visit * Reason Comments PT Initial Evaluation * Consult, Test & Treat (Routine) - Authorized Specialty Diagnoses / Procedures Referred By Tita hurst Referred To Contact PHYSICAL THERAPY / Physical Therapy Diagnoses Myofascial pain Arthralgia of right temporomandibular joint Myalgia of mastication muscle Procedures CONSULT TO PHYSICAL THERAPY Awa Cobb, DMD [address] [place] [address] Phone: tel: fax: Liseth Riojas, PT [address] [place] [address] Phone: tel:[phone] fax:[phone] Referral ID Status Reason Start Date Expiration Date V isits Requested Visits Authorized [id number] Authorized Other 06/02/2024 03/22/2025 50 50 Encounter Details Date Type Department Care Team (Latest Contact Info) Description 06/21/2024 1:30 PM CDT [facility] [address] [place] [address] Sinanesterhollie Alexa Ester, PT [address] [place] [address] Myofascial pain; Arthralgia of right temporomandibular joint; Myalgia of mastication muscle Social History Tobacco Use Types Packs/Day Years Used Date Smoking Tobacco: Never Passive Smoke Exposure: Never Smokeless Tobacco: Never Comments:smoke free Alcohol Use Standard Drinks/Week Comments Never 0 (1 standard drink = 0.6 oz pur e alcohol) [facility] Utilities Answer Date Recorded In [...] often do you attend chur ch or anglican services? More than 4 times per year 03/09/2024 Do you belong to any clubs o r organizations such as restorationist groups, unions, fraternal or athletic groups, or [...] and heating? Not hard at all 03/09/2024 [facility] of Occupat ional Health - Occupational Stress [...] any time in the past 12 m [facility], were you homeless or living in a correction (including now)? 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. [...] time. 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 Patient Goals: Be able to eat more things with less pain. Medical History: General Health: Good. Past Medical History: Diagnosis Date Asperger's syndrome 10/08/2011 Congenital lobar emphysema Gastroesophageal reflux 10/29/2018 Healthcare maintenance [facility] Relevant/Recent Surgeries: Past Surgical History: Procedure Laterality [...] their exercises unless otherwise noted. Evaluation Time (20434m2): 55 minutes. Therapeutic Exercise (46432z6): 20 minutes. Neuromuscular Re-education (98338y6): 5 minutes. Manual Therapy (83146h4): 10 minutes. Non billed time: 4 minutes. Total Treatment Time: 94 minutes. Charges: 85007; 62519p3, 95188l2. Alexa Calloway PT, [place] License #[id number] documented in this encounter Plan of Treatment Upcoming Encounters Date Type Department Care Team (Late st Contact Info) Description 07/27/2024 9:30 AM CDT Physical Therapy [facility] [address] [place] [address] Alexa Calloway, PT [address] [place] [address] documented as of this encounter Procedures Procedure [...] 06/29/2024 documented in this encounter Care Teams Battery Vent Plug Inserter Relationship Specialty Start Date End Date Keagan Bryant MD [address] [place] [address] PCP - General FAMILY MEDICINE 12/23/19 documented as of this encounter
--- OUTSIDE RECORDS SUMMARY | 2024-07-11 20:16 | XMS_ITS | Clinical Summary ---
Author Organization [facility] Address [address] [place] [address] Care Team Providers Care Loft Rigger Name Role Phone Keagan Bryant MD Primary Care Provider [phone] Source Comments If you need additional information that is not available on Care Everywhere, please contact our Medical Records Department during business hours (Thursday - Thursday, 8 am - 5 pm) at . During nonbusiness hours, please contact our Trauma and Emergency Center at .[facility] Allergies No known active allergies Medications [...] Description 07/06/2024 2:30 PM CDT Physical Therapy [address] [address] Alexa Calloway, PT Myofascial pain (Primary Dx); Arthralgia of right temporomandibular joint; Myalgia of mastication muscle 06/21/2024 1:30 PM CDT Physical Therapy [address] [address] Alexa Calloway, PT Myofascial pain; Arthralgia of right temporomandibular joint; Myalgia of mastication muscle 06/02/2024 Orders Only [place] [facility] [address] [place] [address] Awa Cobb, NAHUM Myofascial pain (Primary Dx); Arthralgia of right temporomandibular joint; Myalgia of mastication muscle 06/01/2024 Telephone [place] [facility] [address] [place] [address] Zuri Juarez, Dental Call Center Analyst 04/26/2024 3:15 PM POUCH MAKER Office Visit [place] [facility] [address] [place] [address] Raven Lechuga, LOG DRIVER Bilateral impacted cerumen (Primary Dx); Acute otitis [...] drink = 0.6 oz pur e alcohol) [facility] Utilities Answer Date Recorded In the past 12 months has [employer], gas, oil, or water [employer] threatened to shut off services in your home? No 03/09/2024 Social Connection and Isolat ion Panel [NHANES] Answer Date Recorded In a typical week, how many times do you talk on the phone with family, friends, or neighbors? Twice a week 03/09/2024 How often do you get togethe r with friends or relatives? Twice a week 03/09/2024 How often do you attend [facility] or taoism services? More than 4 times per year 03/09/2024 Do you belong to any clubs o r organizations such as confucianist groups, unions, fraternal or athletic groups, or [...] and heating? Not hard at all 03/09/2024 [facility] of Occupat ional Health - Occupational [...] any time in the past 12 m [facility], were you homeless or living in a longterm (including now)? 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 Not on file N ot on file Not on file Obstetrics History Last Filed Vital Signs Vital Sign Reading Time Taken Comments Blood Pressure 125/84 10/13/2023 1:21 PM CDT Pulse 70 10/13/2023 1:21 PM CDT Temperature 36.6 C (97.9 F) 10/13/2023 1:21 PM CDT Respiratory Rate 16 02/06/2023 3:33 PM POUCH MAKER Oxygen Saturation 100% 02/06/2023 3:48 PM POUCH MAKER Inhaled Oxygen Concentration - - Weight 65.8 kg (145 lb) 03/10/2024 6:58 AM POUCH MAKER Height 185.4 cm (6' 1) 03/10/2024 6:58 AM POUCH MAKER Body Mass Index 19.13 03/10/2024 6:58 AM POUCH MAKER Plan of Treatment Upcoming Encounters Date Type Department Care Team (Late st Contact Info) Description 07/27/2024 9:30 AM CDT [facility] [address] [place] [address] Alexa Calloway, PT [address] [place] [address] Health Maintenance Due Date Last [...] CDT Encounter for screening for cardiovascular disorders [place] PROPHYLAXIS, ADULT Routine 11/05/2020 3:45 PM CDT Visit for dental examination from Last 3 Months or Most Recently Relevant to Health Maintenance Results * LAB LIPOPROTEIN ANALYSIS PANEL (11/04/2023 9:34 AM CDT) CHOLESTEROL 146 0 - 200 mg/dL 11/04/2023 10:18 AM CDT [facility] Comment: Adult: >=18 YRS Desirable less than 200 mg/dL TRIGLYCERIDE 109 <150 mg/dL 11/04/2023 10:18 AM CDT [facility] Comment: Desirable: <150 mg/dL Borderline High: 150-199 mg/dL High: 200-499 mg/dL Very High: >=500 mg/dL NON HDL CHOLESTEROL 90 <130 mg/dL 11/04/2023 10:18 AM CDT [facility] Comment: Adult >=18 YRS: Desirable: <130 mg/dL LDL CHOLESTEROL 68 <130 mg/dL 11/04/2023 10:18 AM CDT [facility] Comment: Adult: >=18 YRS Desirable less than 100 mg/dL Calculated using the Friedewald formula. HDL CHOLESTEROL 56 40 - 60 mg/dL 11/04/2023 10:18 AM CDT [facility] HOURS FASTING >=9 Hours 11/04/2023 10:18 AM T [facility] Blood 11/04/2023 9:34 AM CDT 11/04/2023 10:00 AM CDT us Keagan Bryant MD CHEMISTRY ORDERABLES Final Re sult [facility] [address] [place] [address] from Last 3 Months or Most Recently Relevant to Health Maintenance Insurance [employer] [facility] CONTRACTED Care Teams Loft Rigger Relationship Specialty Start Date End Date Keagan Bryant MD [address] [place] [address] PCP - General FAMILY MEDICINE 12/23/19
--- OUTSIDE RECORDS SUMMARY | 2024-07-11 20:16 | XMS_ITS | Clinical Summary ---
Author Organization [facility] Address [address] [place] [address] Care Team Providers Care Traffic Sign Erection Supervisor Name Role Phone Unavailable Primary Care Provider Unavailabl e Source Comments Patient records contain information from all sites at [facility]. For routine questions regarding patient records, call [phone] during business hours, M-F 8:00 AM - 5:00 PM Central Time. Record requests for emergency care only can be directed to [phone] at any time.[facility] Allergies No known active allergies Medications multivitamin tablet Take 1 tablet by mouth daily. Active fluticasone propionate (Flonase) 50 mcg/actuation nasal spray Administer 2 sprays into each nostril as needed for rhinitis or allergies. Active Social History Tobacco Use Types Packs/Day Years Used Date Smoking Tobacco: Never Smokeless Tobacco: Never Tobacco Cessation:Counseling Given: Not Answered [facility] Utilities Answer Date Recorded In the past 12 months has [facility] [employer], gas, oil, or water [employer] threatened to shut off services in your [...] your living situation today? 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
--- OUTSIDE RECORDS SUMMARY | 2024-07-11 20:16 | XMS_ITS | Encounter Summary ---
Author Organization [facility] [employer] [facility] Address [address] [place] [address] Care Team Providers Care Optical Element Coater Name Role Phone Mode Bryantbranden Berg MD Primary Care Provider [phone] Reason for Visit * Reason Comments PT Daily Note Encounter Details Date Type Department Care Team (Latest Contact Info) Description 07/06/2024 2:30 PM CDT Physical Therapy [facility] [address] [place] [address] Alexa Calloway, PT [address] [place] [address] Myofascial pain (Primary Dx); Arthralgia of right temporomandibular joint; Myalgia of mastication muscle Social History Tobacco Use Types Packs/Day Years Used Date Smoking Tobacco: Never Passive Smoke Exposure: Never Smokeless Tobacco: Never Comments:smoke free Alcohol Use Standard Drinks/Week Comments Never 0 (1 standard drink = 0.6 oz pur e alcohol) [facility] Utilities Answer Date Recorded In the past 12 months has [employer], gas, oil, or water company threatened [...] often do you attend chur ch or rastafari services? More than 4 times per year 03/09/2024 Do you belong to any clubs o r organizations such as rastafari groups, unions, fraternal or athletic groups, or [...] and heating? Not hard at all 03/09/2024 [facility] of Occupat ional Health - Occupational [...] any time in the past 12 m [facility], were you homeless or living in a halfway (including now)? 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 The patient is located in [facility]). Patient is: alone. Consent for video visit has been discussed with the patient. The patient was notified that this application is not secure and may present privacy risks of the information sent during the appointment.Patient acknowledges and consents to proceed with the video visit. Clinician completing this visit is located at Clinician Office ([place], [place]). 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 Patient Goals: Be able [...] Total treatment time: 23 minutes Charge codes: 09467w2, 51269u4 documented in this encounter Plan of Treatment Upcoming Encounters Date Type Department Care Team (Late st Contact Info) Description 07/27/2024 9:30 AM CDT Physical Therapy [facility] [address] [place] [address] Alexa Calloway, PT [address] [place] [address] documented as of this encounter Visit Diagnoses Diagnosis Myofascial pain- Primary Mylagia and myositis, unspecified Arthralgia of right temporomandibular joint Arthralgia of temporomandibular joint Myalgia of mastication muscle documented in this encounter Care Teams Optical Element Coater Relationship Specialty Start Date End Date Keagan Bryant MD [address] [place] [address] PCP - General FAMILY MEDICINE 12/23/19 documented as of this encounter
--- OUTSIDE RECORDS SUMMARY | 2024-07-11 20:16 | XMS_ITS | Clinical Summary ---
Author Organization [facility] and [facility] [place] [address] Care Team Providers Care Guidance Secretary Name Role Phone ManavrgAlex salguero Primary Care Provider Unavailable Source Comments The [facility] EMR consists of medical records from all [facility] and [facility] ([facility]), the [facility] ([facility]), [facility], as well as other affiliates or partners, to include: [facility] [place], [place], [facility], [facility], [facility], [facility], [facility], [place] [facility]), [place] [facility], and [facility]. The EMR may not contain all information available for this patient pursuant to the Care Everywhere program, as well as varying phases of implementation.[facility] and [place] [facility] Social History Tobacco Use Types Packs/Day [...] Plan of Treatment Not on file Insurance [facility] STATE AND LOCAL Care Teams Guidance Secretary Relationship Specialty Start Date End Date Alex Reddy [address] [phone] PCP - General 08/26/19
--- OUTSIDE RECORDS SUMMARY | 2024-07-11 20:16 | XMS_ITS | Encounter Summary ---
Author Organization [facility] [employer] [facility] Address [address] [place] [address] Care Team Providers Care Stock Lifter Name Role Phone Keagan Bryant MD Primary Care Provider [phone] Reason for Referral * Consult, Test & Treat (Routine) - Authorized Specialty Diagnoses / Procedures Referred By Tita [place] Referred To Contact PHYSICAL THERAPY / Physical Therapy Diagnoses Myofascial pain Arthralgia of right temporomandibular joint Myalgia of mastication muscle Procedures CONSULT TO PHYSICAL THERAPY Awa Cobb DMD [address] [place] [address] Phone: tel: fax: Liseth Riojas, PT [address] [place] [address] Phone: tel:[phone] Referral ID Status Reason Start Date Expiration Date V isits Requested Visits Authorized [id number] Authorized Other 06/02/2024 03/22/2025 50 50 Encounter Details Date Type Department Care Team (Latest Contact Info) Description 06/02/2024 Orders Only Rupali Gómez - Oral Surgery [address] [place] [address] Awa Cobb, DMD [address] [place] [address] Myofascial pain (Primary Dx); Arthralgia of right temporomandibular joint; Myalgia of mastication muscle Social History Tobacco Use Types Packs/Day Years Used Date Smoking Tobacco: Never Passive Smoke Exposure: Never Smokeless Tobacco: Never Comments:smoke free Alcohol Use Standard Drinks/Week Comments Never 0 (1 standard drink = 0.6 oz pur e alcohol) [facility] Utilities Answer Date Recorded In the [...] often do you attend chur ch or confucianism services? More than 4 times per year 03/09/2024 Do you belong to any clubs o r organizations such as taoist groups, unions, fraternal or athletic groups, or [...] and heating? Not hard at all 03/09/2024 [facility] [place] of Occupat ional Health - Occupational Stress [...] time in the past 12 m [facility], were you homeless or living in a senior living (including now)? 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 Not on file N ot on file Not on file documented as of this encounter Plan of Treatment Upcoming Encounters Date Type Department Care Team (Late st Contact Info) Description 07/27/2024 9:30 AM CDT Physical Therapy [facility] [address] [place] [address] Alexa Calloway, PT [address] [place] [address] documented as of this encounter Visit Diagnoses Diagnosis Myofascial pain- Primary Mylagia and myositis, unspecified Arthralgia of right temporomandibular joint Arthralgia of temporomandibular joint Myalgia of mastication muscle documented in this encounter Orders Consult Count Last Ordered Date First Orde red Date CONSULT TO PHYSICAL THERAPY 1 06/21/2024 documented in this encounter Care Teams Stock Lifter Relationship Specialty Start Date End Date Keagan Bryant MD [address] [place] [address] PCP - General FAMILY MEDICINE 12/23/19 documented as of this encounter
--- OUTSIDE RECORDS SUMMARY | 2024-07-11 20:16 | XMS_ITS | Encounter Summary ---
Author Organization [facility] Address [address] [place] [address] Care Team Providers Care Furnace Process Supervisor Name Role Phone Keagan Bryant MD Primary Care Provider [phone] Encounter Details Date Type Department Care Team (Late st Contact Info) Description 06/01/2024 Telephone [facility] - Oral Surgery [address] [place] [address] Zuri Juarez, Dental Tub Rider [address] [place] [address] Social History Tobacco Use Types Packs/Day Years Used Date Smoking Tobacco: Never Passive Smoke Exposure: Never Smokeless Tobacco: Never Comments:smoke free Alcohol Use Standard Drinks/Week Comments Never 0 (1 standard drink = 0.6 oz pur e alcohol) [place] Utilities Answer Date Recorded In the past 12 months has [employer], gas, oil, or water company threatened [...] How often do you attend chur or faith services? More than 4 times per year 03/09/2024 Do you belong to any clubs o r organizations such as judaism groups, unions, fraternal or athletic groups, or [...] and heating? Not hard at all 03/09/2024 [facility] [place] of Occupat ional Health - Occupational Stress [...] time in the past 12 m [facility], were you homeless or living in a fdc (including now)? 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 They spoke to insurance and was told we need to send a referral back to [facility] stating Ronaldo is to have his PT treatment at the [facility]. The reason is that there is no local option in [facility] for him to see a board certified [facility] specialist and they have one a their clinic. [facility] told[facility] that [facility] has PT options. Physical therapy treatment procedure Codes: 49985 - therapy px 1+ areas, 39439 - neuromuscular re-education 76736 - self long term management 84791- joint mobilization MFR 00901- PT eval high complexity Jeanne stated the [facility] rep she spoke to was Paul [phone]. He is in the [facility] side. She spoke to him in March and April. Jeanne stated the cell phone on file is the best way to contact her. I asked if she could have the clinic notes from the [facility] faxed to [facility], along with treatment that [...] It is recommended that [facility] send their recommendations to PT at [facility] [...] Description 07/27/2024 9:30 AM CDT Physical Therapy [facility] [address] [place], [place] [id number] Alexa Calloway, PT [address] [place], [place] [id number] documented as of this encounter Visit Diagnoses Not on filedocumented in this encounter Care Teams Furnace Process Supervisor Relationship Specialty Start Date End Date Keagan Bryant MD [address] [place], [place] [id number] PCP - General FAMILY MEDICINE 12/23/19 documented as of this encounter
--- OUTSIDE RECORDS SUMMARY | 2024-07-11 20:16 | XMS_ITS | Encounter Summary ---
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 Gender Identity Not on file Sexual Orientation Not on file documented as of this encounter Plan of Treatment Upcoming Encounters Date Type Department Care Team (Late st Contact Info) Description 07/27/2024 9:30 AM CDT Physical Therapy [facility] [address] [place] [address] Alexa Calloway, PT [address] [place] [address] documented as of this encounter Visit Diagnoses Not on filedocumented in this encounter Care Teams Chief Wellness Officer Relationship Specialty Start Date End Date Keagan Bryant MD [address] [place] [address] PCP - General FAMILY MEDICINE 12/23/19 documented as of this encounter
[2024-07-11 20:30] LABS: Chloride* 101 mmol/L (96-114); Potassium* 3.7 mmol/L (3.6-5.1); Sodium* 140 mmol/L (135-149)
[2024-07-11 20:33] LABS: Blood Urea Nitrogen* 11 mg/dL (5-24); Creatinine* 0.8 mg/dL (0.5-1.5); Est. Creatinine Clearance* 138.88; Estimated Glomerular Filt Rate 129 ml/min
[2024-07-11 20:34] LABS: Anion Gap 10 mEq/L (7-15); Calcium* 9.2 mg/dL (8.4-10.6); Carbon Dioxide* 29 mmol/L (20-32); Glucose* 99 mg/dL (60-115); Magnesium* 2.2 mg/dL (1.5-2.6)
[2024-07-11 20:36] LABS: Basophils Absolute Auto 0.03 K/uL (0.00-0.30); Basophils Percent Auto 0.3 % (0.0-3.0); Eosinophils Percent Auto 1.2 % (0.0-7.0); Hematocrit 39.6 % (37.0-53.0); Hemoglobin* 13.5 gm/dL (13.5-17.5); Immature Granulocytes Abs Auto 0.01 K/uL (0.00-0.30); Immature Granulocytes Pct Auto 0.1 %; Lymphocytes Percent Auto 16.6 % (20-44); Mean Corpuscular HGB Conc 34 gm/dL (32-36); Mean Corpuscular Hemoglobin 31 pg (26-34); Mean Corpuscular Volume 90 fL (80-100); Monocytes Percent Auto 8.8 % (0.0-11.0); Platelet Count* 267 K/uL (140-440); RDW Coefficient of Variation % 11.8 % (11.5-15.5); Red Blood Count 4.42 m/uL (4.30-5.90); White Blood Count* 8.62 K/uL (4.50-11.00)
[2024-07-11 20:37] LABS: Slide Review Reflex No
[2024-07-11 20:43] LABS: NT Pro B Type NatriureticPept* < 20 pg/mL
== END 2024-07-11 22:00 | disposition home or self-care (01) ==
PROVIDERS: Emergency Provider Family Medicine
DX: R07.9 Chest pain, unspecified (principal)
CPT/HCPCS: 36415; 71275; 74174; 80048; 83735; 83880; 84484; 85025; 86140; 93005; 99285; Q9967